=== PATIENT | male | born 1995 | race Caucasian/White ===

== ENCOUNTER 2016-10-12 16:32 | Emergency (ER) | payer OTHER, MEDICAID ==
[2016-10-12] MEDS ORDERED: IBUPROFEN 800 MG TABLET PO ONE (17:01)
[2016-10-12] MEDS ORDERED: CYCLOBENZAPRINE HCL 10 MG TABLET PO ONE (17:01)
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
[2016-10-12 18:26] VITALS: BP 118/73
== END 2016-10-12 18:40 | disposition home or self-care (01) ==
LOC: ER 16:32
DX: T14.90 Injury, unspecified (principal); M54.5 Low back pain; V43.62XA Car passenger injured in collision with other type car in traffic accident, initial encounter; F84.0 Autistic disorder; I10 Essential (primary) hypertension
CPT/HCPCS: 99283

== ENCOUNTER → 2016-10-12 | Outpatient (CLI) | payer MEDICARE, MEDICAID ==
[2016-10-12 12:24] LABS: ABSOLUTE EOSINOPHILS # (AUTO) 0.1 10^3/uL (0.0-0.6); ABSOLUTE LYMPHOCYTES (AUTO) 2.6 10^3/uL (0.5-4.7); ABSOLUTE MONOCYTES (AUTO) 0.6 10^3/uL (0.1-1.4); ABSOLUTE NEUT (AUTO) 2.6 10^3/uL (1.7-8.2); BASOPHILS % (AUTO) 0.5 % (0-2); EOSINOPHILS % (AUTO) 1.4 % (0-6); HEMATOCRIT 36.5 % (37.9-51.0); HEMOGLOBIN 12.4 g/dL (13.5-17.0); HGB HCT DIFFERENCE 0.7; LYMPHOCYTES % (AUTO) 44.5 % (13-45); MEAN CORPUSCULAR HEMOGLOBIN 31.8 pg (27.0-33.4); MEAN CORPUSCULAR HGB CONC 33.8 g/dL (32.0-36.0); MEAN CORPUSCULAR VOLUME 94 fl (80-97); MONOCYTES % (AUTO) 9.5 % (3-13); RED BLOOD COUNT 3.88 10^6/uL (4.35-5.55); RED CELL DISTRIBUTION WIDTH 12.6 % (11.5-14.0); SEGMENTED NEUTROPHILS % (AUTO) 44.1 % (42-78); WHITE BLOOD COUNT 5.9 10^3/uL (4.0-10.5)
[2016-10-12 12:50] LABS: ALANINE AMINOTRANSFERASE 19 U/L (21-72); ALBUMIN 3.9 g/dL (3.5-5.0); ALKALINE PHOSPHATASE 88 U/L (38-126); ANION GAP 8 (5-19); ASPARTATE AMINO TRANSFERASE 18 U/L (17-59); BILIRUBIN,DIRECT 0.4 mg/dL (0.0-0.4); BILIRUBIN,TOTAL 0.5 mg/dL (0.2-1.3); BLOOD UREA NITROGEN 12 mg/dL (7-20); CALCIUM 9.8 mg/dL (8.4-10.2); CARBON DIOXIDE 28 mmol/L (22-30); CHLORIDE 107 mmol/L (98-107); CHOLESTEROL 200.88 mg/dL (0-200); CREATININE RESULT 0.82 mg/dL (0.52-1.25); Direct HDL 49 mg/dL (>40); GLUCOSE 85 mg/dL (75-110); POTASSIUM 5.2 mmol/L (3.6-5.0); SODIUM 142.7 mmol/L (137-145); TOTAL PROTEIN 7.2 g/dL (6.3-8.2); TRIGLYCERIDES 97 mg/dL (<150)
[2016-10-12 13:01] LABS: DIRECT LDL 116 mg/dL (<100); VALPROIC ACID 67.6 ug/mL (50.0-120.0)
== END ==
LOC: OD 11:15
PROVIDERS: ATTEND Nurse Practitioner Psychiatric/Mental Health
DX: F34.81 Disruptive mood dysregulation disorder (principal); Z79.899 Other long term (current) drug therapy
CPT/HCPCS: 36415; 80053; 80061; 80164; 83036; 85025

== ENCOUNTER 2017-08-31 16:18 | Emergency (ER) | payer MEDICARE, MEDICAID ==
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
[2017-08-31] MEDS ORDERED: OLANZAPINE 5 MG TABLET PO ONE (17:06)
[2017-08-31] MEDS ORDERED: DIPHENHYDRAMINE HCL 50 MG CAPSULE PO ONE (17:06)
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
[2017-08-31 18:02] LABS: ABSOLUTE EOSINOPHILS # (AUTO) 0.1 10^3/uL (0.0-0.6); ABSOLUTE LYMPHOCYTES (AUTO) 2.8 10^3/uL (0.5-4.7); ABSOLUTE MONOCYTES (AUTO) 0.9 10^3/uL (0.1-1.4); ABSOLUTE NEUT (AUTO) 5.3 10^3/uL (1.7-8.2); BASOPHILS % (AUTO) 0.2 % (0-2); HEMATOCRIT 39.6 % (37.9-51.0); HEMOGLOBIN 13.3 g/dL (13.5-17.0); LYMPHOCYTES % (AUTO) 30.5 % (13-45); MEAN CORPUSCULAR HEMOGLOBIN 31.1 pg (27.0-33.4); MEAN CORPUSCULAR HGB CONC 33.6 g/dL (32.0-36.0); MEAN CORPUSCULAR VOLUME 93 fl (80-97); MONOCYTES % (AUTO) 10.1 % (3-13); PLATELET COUNT 247 10^3/uL (150-450); RED BLOOD COUNT 4.27 10^6/uL (4.35-5.55); RED CELL DISTRIBUTION WIDTH 13.1 % (11.5-14.0); SEGMENTED NEUTROPHILS % (AUTO) 58.2 % (42-78); TOTAL CELLS COUNTED % (AUTO) 100 %; WHITE BLOOD COUNT 9.1 10^3/uL (4.0-10.5)
[2017-08-31 18:05] LABS: APPEARANCE,URINE CLEAR; BILIRUBIN,URINE NEGATIVE (NEGATIVE); COLOR,URINE STRAW; GLUCOSE, URINE NEGATIVE (NEGATIVE); KETONES,URINE NEGATIVE (NEGATIVE); LEUKOCYTE ESTERASE,URINE NEGATIVE (NEGATIVE); NITRITE,URINE NEGATIVE (NEGATIVE); PROTEIN,URINE NEGATIVE (NEGATIVE); URINE SPECIFIC GRAVITY 1.009; UROBILINOGEN,URINE NEGATIVE mg/dL (<2.0)
[2017-08-31 18:19] LABS: ACETAMINOPHEN < 10 ug/mL (10-30); ALANINE AMINOTRANSFERASE 28 U/L (21-72); ALBUMIN 4.4 g/dL (3.5-5.0); ALCOHOL < 10 mg/dL (NONE DETECTED); ALKALINE PHOSPHATASE 99 U/L (38-126); ANION GAP 11 (5-19); ASPARTATE AMINO TRANSFERASE 24 U/L (17-59); BILIRUBIN,DIRECT 0.2 mg/dL (0.0-0.4); BILIRUBIN,TOTAL 0.2 mg/dL (0.2-1.3); BLOOD UREA NITROGEN 20 mg/dL (7-20); CALCIUM 9.8 mg/dL (8.4-10.2); CARBON DIOXIDE 27 mmol/L (22-30); CHLORIDE 106 mmol/L (98-107); GLUCOSE 84 mg/dL (75-110); POTASSIUM 4.5 mmol/L (3.6-5.0); SALICYLATE 2.6 mg/dL (2.0-20.0); SODIUM 143.6 mmol/L (137-145); TOTAL PROTEIN 7.7 g/dL (6.3-8.2); URINE AMPHETAMINES SCREEN NEGATIVE; URINE BARBITURATES SCREEN NEGATIVE; URINE BENZODIAZEPINES SCREEN NEGATIVE; URINE COCAINE SCREEN NEGATIVE; URINE MARIJUANA (THC) SCREEN NEGATIVE; URINE METHADONE SCREEN NEGATIVE; URINE PHENCYCLIDINE SCREEN NEGATIVE
[2017-08-31] MEDS ORDERED: DIPHENHYDRAMINE HCL 50 MG/ML VIAL IM ONE (19:42)
[2017-08-31] MEDS ORDERED: HALOPERIDOL LACTATE INJ 5 MG/1 ML VIAL IM ONE (19:42)
[2017-08-31] MEDS ORDERED: HALOPERIDOL LACTATE INJ 5 MG/1 ML VIAL ONE (19:42)
[2017-08-31] MEDS ORDERED: DIPHENHYDRAMINE HCL 50 MG/ML VIAL ONE (19:44)
[2017-08-31] MEDS ORDERED: ACETAMINOPHEN 325 MG TABLET PO ONE (20:20)
[2017-09-01] MEDS ORDERED: ACETAMINOPHEN 325 MG TABLET ONE (05:51)
--- NOTE | 2017-09-01 07:56 | EKG REPORT ---
SEVERITY:- OTHERWISE NORMAL ECG - SINUS TACHYCARDIA : Confirmed by: Oleg Jackson MD 01-Sep-2017 07:55:27
--- NOTE | 2017-09-01 09:34 | ER Document Report ---
Doctor's Note Notes: 09/01/17 09:33 Rounds: Chart reviewed and patient interviewed. Patient is happy and smiling and waving to say goodbye. Patient has a history of ADHD, bipolar disorder, autism, and seizures. Vital signs have all been essentially normal. Lab studies were all essentially normal. Patient appears to be medically stable for transfer or discharge. He has an appointment to be seen by his mental health provider as an outpatient at 11 AM this morning. Mental health has approved is being discharged to follow-up with his primary provider. Krys Velasquez MD
[2017-09-01 09:48] VITALS: BP 133/84
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
== END 2017-09-01 09:50 | disposition home or self-care (01) ==
LOC: ER 16:18
DX: F84.0 Autistic disorder (principal); F90.9 Attention-deficit hyperactivity disorder, unspecified type; F31.9 Bipolar disorder, unspecified; R45.6 Violent behavior; I10 Essential (primary) hypertension; Z88.8 Allergy status to other drugs, medicaments and biological substances; Z79.899 Other long term (current) drug therapy; R00.0 Tachycardia, unspecified
CPT/HCPCS: 93005; 99285; 96372; 36415; 80307 ×4; 84443; 85025; 80053; 81001; 93010; A9270 ×3; J1200; J1630

== ENCOUNTER → 2017-09-06 | Outpatient (CLI) | payer MEDICARE, MEDICAID ==
--- NOTE | 2017-09-06 15:59 | RADIOLOGY REPORT (SQ) ---
EXAM DESCRIPTION: MRI RT LOWER JOINT COMBO COMPLETED DATE/TIME: 09/06/2017 1:08 pm REASON FOR STUDY: R ANKLE MASS M25.879 OTHER SPECIFIED JOINT DISORDERS, UNSPECIFIED ANKLE A COMPARISON: Right foot films 05/17/2012 TECHNIQUE: Multiplanar fat and fluid sensitive sequences precontrast including T1, T2 fat saturated or STIR. Post contrast T1 fat saturated sequences after IV gadolinium administration. CONTRAST TYPE AND DOSE: 15 mL Prohance. RENAL FUNCTION: GFR > 60. LIMITATIONS: None. FINDINGS: Patient has a palpable abnormality along the ventral aspect of the ankle/distal tibial reg ion. The palpable abnormality was marked on the skin surface with a vitamin E capsule. Deep to the vitamin-E capsule, a well-circumscribed fluid filled thin-walled subcutaneous cyst is pre sent, superficial to the tibialis anterior, extensor hallucis longus and extensor digitorum tendon. No contrast enhancement. There is a fluid-debris level inside the cyst evident on axial T2 image 9. This subcutaneous cyst measures 13 x 6 mm in size and is best shown on axial image 9, and sagittal im age 9. This may represent a sebaceous cyst or old hematoma. Synovial cyst related to the tendon she aths is unlikely, this is superficial to the tibialis anterior tendon sheath. Remainder of the ankle imaging demonstrates mild increased marrow signal along the dorsum of the calc aneus on sagittal STIR image 9. This could be a bone contusion from hyperextension of the ankle, or a stress reaction. No radiographically occult fractures. Achilles tendon, plantar fascia, posterior tibial and peroneal tendons, flexor hallucis tendon are all normal. No ankle joint effusion. IMPRESSION: 13 x 6 mm complex cyst in the subcutaneous fat, distal pretibial region. This is discre te from adjacent tendon sheaths and may represent a sebaceous cyst. Old hematoma is possible. Synov ial cyst related to the tibialis anterior tendon is considered much less likely. Incidental finding of a small bone contusion along the dorsal surface of the calcaneus, possibly due to hyperextension injury TECHNICAL DOCUMENTATION: JOB ID: [id number] [employer]- All Rights Reserved Reading location - IP/workstation name: [email or web address]
== END ==
LOC: RAD 11:45
PROVIDERS: ATTEND Orthopaedic Surgery
DX: M71.371 Other bursal cyst, right ankle and foot (principal)
CPT/HCPCS: 82565; 73723; A9576

== ENCOUNTER 2017-10-20 | Emergency (ER) | payer MEDICARE, OTHER | END 2017-10-20 21:05 | disposition left against medical advice (07) ==

== ENCOUNTER 2017-11-02 19:26 | Emergency (ER) | payer MEDICARE, MEDICAID ==
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
[2017-11-02 20:46] LABS: ABSOLUTE EOSINOPHILS # (AUTO) 0.1 10^3/uL (0.0-0.6); ABSOLUTE LYMPHOCYTES (AUTO) 3.9 10^3/uL (0.5-4.7); ABSOLUTE NEUT (AUTO) 4.5 10^3/uL (1.7-8.2); BASOPHILS % (AUTO) 0.2 % (0-2); EOSINOPHILS % (AUTO) 1.5 % (0-6); HEMATOCRIT 38.2 % (37.9-51.0); HEMOGLOBIN 12.9 g/dL (13.5-17.0); LYMPHOCYTES % (AUTO) 40.9 % (13-45); MEAN CORPUSCULAR HEMOGLOBIN 30.7 pg (27.0-33.4); MEAN CORPUSCULAR HGB CONC 33.7 g/dL (32.0-36.0); MEAN CORPUSCULAR VOLUME 91 fl (80-97); MONOCYTES % (AUTO) 10.4 % (3-13); PLATELET COUNT 253 10^3/uL (150-450); RED BLOOD COUNT 4.19 10^6/uL (4.35-5.55); RED CELL DISTRIBUTION WIDTH 12.5 % (11.5-14.0); TOTAL CELLS COUNTED % (AUTO) 100 %; WHITE BLOOD COUNT 9.5 10^3/uL (4.0-10.5)
[2017-11-02 21:12] LABS: ALANINE AMINOTRANSFERASE 24 U/L (21-72); ALBUMIN 3.9 g/dL (3.5-5.0); ALKALINE PHOSPHATASE 99 U/L (38-126); ANION GAP 15 (5-19); ASPARTATE AMINO TRANSFERASE 20 U/L (17-59); BILIRUBIN,DIRECT 0.1 mg/dL (0.0-0.4); BILIRUBIN,TOTAL 0.1 mg/dL (0.2-1.3); BLOOD UREA NITROGEN 16 mg/dL (7-20); CALCIUM 9.3 mg/dL (8.4-10.2); CARBON DIOXIDE 24 mmol/L (22-30); CHLORIDE 105 mmol/L (98-107); GLUCOSE 88 mg/dL (75-110); POTASSIUM 4.2 mmol/L (3.6-5.0); SALICYLATE 1.9 mg/dL (2.0-20.0); SODIUM 144.2 mmol/L (137-145)
[2017-11-02 21:20] LABS: ACETAMINOPHEN < 10 ug/mL (10-30); ALCOHOL < 10 mg/dL (NONE DETECTED)
[2017-11-02 22:32] VITALS: BP 128/78
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
--- NOTE | 2017-11-02 23:35 | EKG REPORT ---
SEVERITY:- NORMAL ECG - SINUS RHYTHM : Confirmed by: Dank Weir 02-Nov-2017 23:35:33
== END 2017-11-02 22:48 | disposition home or self-care (01) ==
LOC: ER 19:26
DX: G40.909 Epilepsy, unspecified, not intractable, without status epilepticus (principal); Z79.899 Other long term (current) drug therapy; F84.0 Autistic disorder; F31.9 Bipolar disorder, unspecified; R45.6 Violent behavior; Z88.8 Allergy status to other drugs, medicaments and biological substances; I10 Essential (primary) hypertension
CPT/HCPCS: 36415; 80053; 80164; 80307; 82140; 83690; 85025; 93005; 93010; 99285

== ENCOUNTER 2017-11-10 19:59 | Emergency (ER) | payer MEDICARE, MEDICAID ==
[2017-11-10 20:51] VITALS: BP 99/84
[2017-11-10 20:57] LABS: ABSOLUTE EOSINOPHILS # (AUTO) 0.1 10^3/uL (0.0-0.6); ABSOLUTE LYMPHOCYTES (AUTO) 3.1 10^3/uL (0.5-4.7); ABSOLUTE MONOCYTES (AUTO) 0.9 10^3/uL (0.1-1.4); ABSOLUTE NEUT (AUTO) 3.7 10^3/uL (1.7-8.2); BASOPHILS % (AUTO) 0.5 % (0-2); EOSINOPHILS % (AUTO) 1.3 % (0-6); HEMATOCRIT 38.1 % (37.9-51.0); HEMOGLOBIN 13.1 g/dL (13.5-17.0); MEAN CORPUSCULAR HEMOGLOBIN 31.1 pg (27.0-33.4); MEAN CORPUSCULAR HGB CONC 34.4 g/dL (32.0-36.0); MEAN CORPUSCULAR VOLUME 91 fl (80-97); MONOCYTES % (AUTO) 11.8 % (3-13); PLATELET COUNT 243 10^3/uL (150-450); RED BLOOD COUNT 4.21 10^6/uL (4.35-5.55); RED CELL DISTRIBUTION WIDTH 12.4 % (11.5-14.0); SEGMENTED NEUTROPHILS % (AUTO) 47.4 % (42-78); TOTAL CELLS COUNTED % (AUTO) 100 %; WHITE BLOOD COUNT 7.9 10^3/uL (4.0-10.5)
[2017-11-10 21:00] LABS: APPEARANCE,URINE CLEAR; BILIRUBIN,URINE NEGATIVE (NEGATIVE); COLOR,URINE YELLOW; GLUCOSE, URINE NEGATIVE (NEGATIVE); KETONES,URINE NEGATIVE (NEGATIVE); LEUKOCYTE ESTERASE,URINE NEGATIVE (NEGATIVE); NITRITE,URINE NEGATIVE (NEGATIVE); PROTEIN,URINE NEGATIVE (NEGATIVE); URINE SPECIFIC GRAVITY 1.018
[2017-11-10 21:07] LABS: ALANINE AMINOTRANSFERASE 16 U/L (21-72); ALBUMIN 4.1 g/dL (3.5-5.0); ALKALINE PHOSPHATASE 91 U/L (38-126); ANION GAP 11 (5-19); ASPARTATE AMINO TRANSFERASE 21 U/L (17-59); BILIRUBIN,DIRECT 0.2 mg/dL (0.0-0.4); BILIRUBIN,TOTAL 0.2 mg/dL (0.2-1.3); BLOOD UREA NITROGEN 14 mg/dL (7-20); CALCIUM 9.4 mg/dL (8.4-10.2); CARBON DIOXIDE 24 mmol/L (22-30); CHLORIDE 107 mmol/L (98-107); GLUCOSE 91 mg/dL (75-110); POTASSIUM 4.4 mmol/L (3.6-5.0); SODIUM 142.2 mmol/L (137-145); TOTAL PROTEIN 7.3 g/dL (6.3-8.2)
[2017-11-10 21:09] LABS: ACETAMINOPHEN < 10 ug/mL (10-30); ALCOHOL < 10 mg/dL (NONE DETECTED); SALICYLATE < 1.0 mg/dL (2.0-20.0)
[2017-11-10 21:14] LABS: URINE AMPHETAMINES SCREEN NEGATIVE; URINE BARBITURATES SCREEN NEGATIVE; URINE BENZODIAZEPINES SCREEN NEGATIVE; URINE COCAINE SCREEN NEGATIVE; URINE MARIJUANA (THC) SCREEN NEGATIVE; URINE METHADONE SCREEN NEGATIVE; URINE PHENCYCLIDINE SCREEN NEGATIVE
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
== END 2017-11-10 22:31 | disposition other institution (70) ==
LOC: ER 19:59
DX: F91.9 Conduct disorder, unspecified (principal); I10 Essential (primary) hypertension
CPT/HCPCS: 36415; 80053; 80307; 81001; 85025; 99284

== ENCOUNTER 2017-12-11 21:05 | Emergency (ER) | payer MEDICARE, MEDICAID ==
[2017-12-11] MEDS ORDERED: FLUCONAZOLE 100 MG TABLET PO ONE (21:30)
[2017-12-11] MEDS ORDERED: NYSTATIN/TRIAMCIN CREAM 15 GM TP ONE (21:31)
--- NOTE | 2017-12-11 21:31 | ER Document Report ---
ED General - General Chief Complaint: Rash Stated Complaint: TESTICULAR PAIN Time Seen by Provider: 12/11/17 21:17 Mode of Arrival: Ambulatory Information source: Patient, Relative Notes: 22-year-old male with history of autism, bipolar, schizophrenia presents with complaint of inguinal and testicular itching that started 1 day prior to arrival. Grandparents are at the bedside and states that the patient has been working outdoors in the heat and has had excessive sweating. he denies testicular pain, dysuria. TRAVEL OUTSIDE OF THE [place] IN LAST 30 DAYS: No - HPI Onset: Yesterday Onset/Duration: Gradual, Persistent Quality of pain: No pain Associated symptoms: None Exacerbated by: Denies Relieved by: Denies Similar symptoms previously: No Recently seen / treated by doctor: No - Related Data Allergies/Adverse Reactions: lorazepam [From Ativan] Allergy (Severe, Verified 08/31/17 16:21) risperidone [From Risperdal] Allergy (Verified 08/31/17 16:21) Past Medical History - General Information source: Patient, Relative, [facility] Records - Social History Smoking Status: Never Smoker Frequency of alcohol use: None Drug Abuse: None Lives with: Family Family History: Reviewed & Not Pertinent - Past Medical History Cardiac Medical History: Reports: Hx Hypertension Neurological Medical History: Reports: Hx Seizures Renal/ Medical History: Denies: Hx Peritoneal Dialysis Psychiatric Medical History: Reports: Hx Attention Deficit Hyperactivity Disorder, Hx Bipolar Disorder - Immunizations Immunizations up to date: Yes Hx Diphtheria, Pertussis, Tetanus Vaccination: Yes Review of Systems - Review of Systems Notes: REVIEW OF SYSTEMS: CONSTITUTIONAL : Denies fever, chills, or sweats. Denies recent illness. Denies weight loss, recent hospitalizations. EENT: Denies visual changes, eye pain. Denies nasal or sinus congestion or discharge. Denies sore throat, oral lesions, difficulty swallowing. CARDIOVASCULAR: Denies chest pain. Denies palpitations. Denies lower extremity edema. RESPIRATORY: Denies cough, cold, or chest congestion. Denies shortness of breath, wheezing. GASTROINTESTINAL: Denies abdominal pain or distention. Denies nausea, vomiting , or diarrhea. Denies blood in vomitus, stools, or per rectum. Denies black, tarry stools. Denies constipation. GENITOURINARY: Denies difficulty urinating, painful urination, frequency, blood in urine, or vaginal discharge. MUSCULOSKELETAL: Denies back or neck pain or stiffness. Denies joint pain or swelling. SKIN: HEMATOLOGIC : Denies easy bruising or bleeding. LYMPHATIC: Denies swollen glands. NEUROLOGICAL: Denies confusion or altered mental status. Denies passing out or loss of consciousness. Denies dizziness or lightheadedness. Denies headache. Denies weakness or paralysis. Denies problems difficulty with ambulation, slurred speech. Denies sensory loss, numbness, or tingling. Denies seizures. PSYCHIATRIC: Denies anxiety or stress. Denies depression, suicidal ideation, or homicidal ideation. Denies visual or auditory hallucinations. Physical Exam - Vital signs Vitals: Temp Pulse Resp BP Pulse Ox 97.9 F 114 H 20 127/79 H 100 12/11/17 21:11 12/11/17 21:11 12/11/17 21:11 12/11/17 21:11 12/11/17 21:11 Interpretation: Tachycardic - Notes Notes: PHYSICAL EXAMINATION: GENERAL: Well-appearing, well-nourished and in no acute distress. HEAD: Atraumatic, normocephalic. EYES: Pupils equal round and reactive to light, extraocular movements intact, sclera anicteric, conjunctiva are normal. ENT: Nares patent, oropharynx clear without exudates. Moist mucous membranes. NECK: Normal range of motion, supple without lymphadenopathy LUNGS: Breath sounds clear to auscultation bilaterally and equal. No wheezes rales or rhonchi. HEART: Regular rate and rhythm without murmurs ABDOMEN: Soft, nontender, nondistended abdomen. No guarding, no rebound. No masses appreciated. ; testicles nontender, erythema of the inguinal folds, testicle consistent with fungal rash. Musculoskeletal: Normal range of motion, no pitting or edema. No cyanosis. NEUROLOGICAL: Cranial nerves grossly intact. Normal speech, normal gait. Normal sensory, motor exams PSYCH: Normal mood, normal affect. SKIN: Warm, Dry, normal turgor, no rashes or lesions noted. Course - Re-evaluation Re-evalutation: 12/12/17 00:17 22-year-old male presents with complaint of inguinal and testicular itching, burning that started 1 day prior to arrival. Vital signs reviewed upon arrival. Exam consistent with fungal rash. Patient received Diflucan, nystatin during his ED course. Patient discharged home with prescription for nystatin. Patient provided the opportunity to ask questions, and express concerns. Discharge instructions discussed. Patient is agreeable with discharge home. Return indications explained and discussed with the patient who displays understanding. Patient encouraged to return to the emergency department immediately with any concerns. - Vital Signs Vital signs: Temp Pulse Resp BP Pulse Ox 98.1 F 89 17 127/69 H 98 12/11/17 21:56 12/11/17 21:56 12/11/17 21:56 12/11/17 21:56 12/11/17 21:56 Discharge - Discharge Clinical Impression: Jock itch, Fungal rash of trunk Condition: Good Disposition: HOME, SELF-CARE Instructions: Diaper Rash ([facility]) Additional Instructions: your exam is consistent with fungal rash. Follow up with your physician tomorrow for further care or return to the ED IMMEDIATELY if symptoms worsen or new concerns occur. If you cannot afford to follow up with your primary care physician a list of low cost clinics have been provided at the end of your discharge papers as well. Prescriptions: Nystatin/Triamcin [Nystatin-Triamcinolone Ointm] 60 gm TP TID #1 oint...g. Forms: Elevated Blood Pressure
[2017-12-11 21:56] VITALS: BP 127/69
== END 2017-12-11 21:56 | disposition home or self-care (01) ==
LOC: ER 21:05
DX: B35.6 Tinea cruris (principal)
CPT/HCPCS: 99282; J3490; A9270

== ENCOUNTER 2018-04-20 20:01 | Emergency (ER) | payer MEDICARE, MEDICAID ==
[~2018-04-20 20:01] MED LIST: ROCURONIUM BROMIDE INJ 50 MG/5 ML VIAL IV ONE
[2018-04-20] MEDS ORDERED: NORMAL SALINE 1000 ML 1,000 ML IV ONE ×2 (20:37→20:38)
[2018-04-20 20:51] LABS: HEMATOCRIT 39.8 % (37.9-51.0); HEMOGLOBIN 13.5 g/dL (13.5-17.0); MEAN CORPUSCULAR VOLUME 97 fl (80-97); RED BLOOD COUNT 4.09 10^6/uL (4.35-5.55); WHITE BLOOD COUNT 12.2 10^3/uL (4.0-10.5)
[2018-04-20 21:21] LABS: PLATELET COUNT 47 10^3/uL (150-450)
[2018-04-20 21:25] LABS: ABSOLUTE LYMPHOCYTES# (MANUAL) 1.2 10^3/uL (0.5-4.7); ABSOLUTE MONOCYTES # (MANUAL) 2.2 10^3/uL (0.1-1.4); ABSOLUTE NEUTROPHILS# (MANUAL) 8.8 10^3/uL (1.7-8.2); BASOPHILS % (MANUAL) 0 % (0-2); EOSINOPHILS % (MANUAL) 0 % (0-6); LYMPHOCYTES % (MANUAL) 10 % (13-45); MONOCYTES % (MANUAL) 18 % (3-13); SEGMENTED NEUTROPHILS % (MAN) 72 % (42-78); TOTAL CELLS COUNTED 100
[2018-04-20 21:28] LABS: HYPOCHROMASIA SLIGHT; POLYCHROMASIA SLIGHT
[2018-04-20 21:28] LABS: ALANINE AMINOTRANSFERASE 18 U/L (21-72); ALBUMIN 3.1 g/dL (3.5-5.0); ALKALINE PHOSPHATASE 63 U/L (38-126); ANION GAP 10 (5-19); ASPARTATE AMINO TRANSFERASE 26 U/L (17-59); BILIRUBIN,DIRECT 0.5 mg/dL (0.0-0.4); BILIRUBIN,TOTAL 0.7 mg/dL (0.2-1.3); BLOOD UREA NITROGEN 21 mg/dL (7-20); CALCIUM 8.8 mg/dL (8.4-10.2); CARBON DIOXIDE 29 mmol/L (22-30); CHLORIDE 107 mmol/L (98-107); GLUCOSE 113 mg/dL (75-110); POTASSIUM 4.6 mmol/L (3.6-5.0); SODIUM 145.9 mmol/L (137-145)
[2018-04-20 21:29] LABS: ANISOCYTOSIS SLIGHT; PLATELET COMMENT DECREASED; POIKILOCYTOSIS SLIGHT; TEAR DROP CELLS SLIGHT; TOXIC VACUOLATION PRESENT
--- NOTE | 2018-04-20 21:36 | ER Document Report ---
ED General - General Chief Complaint: Decreased LOC Stated Complaint: POSSIBLE DEHYDRATION Time Seen by Provider: 04/20/18 20:16 Notes: Patient is a old male with autism and seizure disorder that presents to the emergency department for chief complaint of decreased mental status, increased somnolence. Mother states that over the last few weeks, patient has been more drowsy, and having frequent falls, and what she describes as "dropping spells" where she thinks the patient may be having a type of seizure, she reports he is on Depakote, they recently increased his dose from 1000 mg to 1500 mg. He is also had some changes in his psychiatric medications, he was on Geodon, until recently switched to Zyprexa, the mother states that he has been drowsy, he has been walking around but then will lose his balance, and then fall over. And then he will have spastic episodes as well. She states she is usually more independent, and has been more active in the past and it got to the point to today where he was so sleepy that she decided to call EMS and bring him to the emergency department. Patient is unable to provide any significant history given his severe autism. Past Medical History: Bipolar disorder, severe autism, seizure disorder Past Surgical History: Denies major surgical history Social History: No alcohol or tobacco use, lives at home with family Family History: Reviewed and noncontributory for presenting illness Allergies: Reviewed, see documented allergy list. REVIEW OF SYSTEMS: Complete review of systems is not obtainable secondary to the patient's altered mental state PHYSICAL EXAMINATION: Vital signs reviewed, nursing noted reviewed. GENERAL: Somnolent, speaks in intermittent words, which is apparently near his baseline, but not somnolent HEAD: Left eyebrow abrasion, no active bleeding, normocephalic. EYES: Eyes appear normal, extraocular movements intact, sclera anicteric, conjunctiva are normal. PERRLA ENT: nares patent, oropharynx clear without exudates. Lips are cracked, consistent with mild to moderate dehydration NECK: Normal range of motion, supple without lymphadenopathy LUNGS: Scattered rhonchi in all lung arenas, no acute respiratory distress HEART: Regular rate and rhythm without murmurs ABDOMEN: Soft, nontender, normoactive bowel sounds. No rebound, guarding, or rigidity. No masses appreciated. EXTREMITIES: Nontender, good range of motion, no pitting or edema. NEUROLOGICAL: No focal neurological deficits. Moves all extremities spontaneously Motor and sensory grossly intact on exam. PSYCH: Somnolent, flat affect SKIN: Warm, Dry, normal turgor, no rashes or lesions noted on exposed skin TRAVEL OUTSIDE OF THE [place] IN LAST 30 DAYS: No - Related Data Allergies/Adverse Reactions: lorazepam [From Ativan] Allergy (Severe, Verified 04/20/18 20:34) risperidone [From Risperdal] Allergy (Verified 04/20/18 20:34) Past Medical History - Social History Smoking Status: Never Smoker Family History: Reviewed & Not Pertinent Patient has suicidal ideation: No Patient has homicidal ideation: No - Past Medical History Cardiac Medical History: Reports: Hx Hypertension Neurological Medical History: Reports: Hx Seizures Renal/ Medical History: Denies: Hx Peritoneal Dialysis Psychiatric Medical History: Reports: Hx Attention Deficit Hyperactivity Disorder, Hx Bipolar Disorder - Immunizations Immunizations up to date: Yes Hx Diphtheria, Pertussis, Tetanus Vaccination: Yes Physical Exam - Vital signs Vitals: Resp Pulse Ox 17 95 04/20/18 20:08 04/20/18 20:08 Course - Re-evaluation Re-evalutation: Patient seen and examined vital signs reviewed. Laboratory data and imaging were ordered as appropriate for the patient's presenting symptoms and complaint, with consideration of any critical or life threatening conditions that may be associated with their obtained history and exam as noted above. Patient was treated with a total of 3 L of IV fluid, 2 of normal saline, 1 of lactated Ringer's Patient was moving all limbs, and seemingly alert, but somnolent on initial exam , when we went to obtain a urine sample, with urine catheterization, the patient barely moved according to nursing, and the patient's mother, I went to reassess the patient, and he was nearly unresponsive, would not open eyes to verbal or noxious stimuli, he would withdrawal to noxious stimuli locally, I assessed his pupils, and in a brightly lit room, they were significantly dilated , still reactive to light, but had disconjugate gaze, concerning for 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 I discussed with the patient's mother, that we need to start him on IV antiepileptic medication, and with Keppra 1000 mg IV was loaded, and for the patient's airway protection, mother was agreeable to this plan of care, he was intubated using RSI as noted in procedure note. Results were reviewed when available and demonstrated an elevated Depakote level of 132, I did discuss this with poison control, they recommended repeating this level, and looking in correlation with ammonia, which is pending at that time, the ammonia level did come back normal at 10, which is less concerning for acute Depakote toxicity, and therefore l-carnitine is not indicated. The rest of his blood work was essentially unremarkable with the exception of mild leukocytosis, mild hypernatremia, which is unlikely to be contributing to the patient's overall current condition. The patient was re-evaluated and was stable on the ventilator, and sedated well on Versed infusion. 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 This was discussed with the patients mother that it is in the best interest for their care to be transferred, the risks and benefits of transfer were discussed, including but not limited to clinical deterioration during transport, respiratory distress, and potential for traumatic injuries. Patients mother agreed with this plan of care. Patient was dissected by Dr. Rutledge *Note is created using voice recognition software and may contain spelling, syntax or grammatical errors. Head CT 04/20/18 20:38 IMPRESSION: Significantly limited due to extensive motion. As visualized no CT evidence for acute intracranial abnormality. Polyps of the left maxillary sinus. TECHNICAL DOCUMENTATION: Quality ID # 436: Final reports with documentation of one or more dose reduction techniques (e.g., Automated exposure control, adjustment of the mA and/or kV according to patient size, use of iterative reconstruction technique) 2010 [employer]- All Rights Reserved Chest X-Ray 04/21/18 01:23 IMPRESSION: 1. Endotracheal tube in appropriate radiographic position. 2. NG tube with tip in the stomach however the side-port is above the level of the gastroesophageal junction. Recommend advancing 5-10 cm. 3. Patchy retrocardiac airspace opacities may represent pneumonia. Laboratory 04/20/18 04/20/18 04/20/18 20:11 20:20 20:55 WBC 12.2 H RBC 4.09 L Hgb 13.5 Hct 39.8 MCV 97 MCH 33.0 MCHC 34.0 RDW 15.0 H Plt Count 47 L Total Counted 100 Seg Neutrophils % Not Reportable Seg Neuts % (Manual) 72 Lymphocytes % Not Reportable Lymphocytes % (Manual) 10 L Monocytes % Not Reportable Monocytes % (Manual) 18 H Eosinophils % Not Reportable Eosinophils % (Manual) 0 Basophils % Not Reportable Basophils % (Manual) 0 Absolute Neutrophils Not Reportable Abs Neuts (Manual) 8.8 H Absolute Lymphocytes Not Reportable Abs Lymphs (Manual) 1.2 Absolute Monocytes Not Reportable Abs Monocytes (Manual) 2.2 H Absolute Eosinophils Not Reportable Absolute Eos (Manual) 0.0 Absolute Basophils Not Reportable Abs Basophils (Manual) 0.0 Toxic Vacuolation PRESENT Platelet Comment DECREASED Polychromasia SLIGHT Hypochromasia SLIGHT Poikilocytosis SLIGHT Anisocytosis SLIGHT Tear Drop Cells SLIGHT Sodium 145.9 H Potassium 4.6 Chloride 107 Carbon Dioxide 29 Anion Gap 10 BUN 21 H Creatinine 0.76 Est GFR ( Amer) > 60 Est GFR (Non-Af Amer) > 60 Glucose 113 H POC Glucose 122 H Calcium 8.8 Magnesium 1.7 Total Bilirubin 0.7 Direct Bilirubin 0.5 H Neonat Total Bilirubin Not Reportable Neonat Direct Bilirubin Not Reportable Neonat Indirect Bili Not Reportable AST 26 ALT 18 L Alkaline Phosphatase 63 Ammonia Creatine Kinase Total Protein 6.0 L Albumin 3.1 L TSH Urine Color Urine Appearance Urine pH Ur Specific [place] Urine Protein Urine Glucose (UA) Urine Ketones Urine Blood Urine Nitrite Urine Bilirubin Urine Urobilinogen Ur Leukocyte Esterase Urine WBC (Auto) Urine RBC (Auto) U Hyaline Cast (Auto) Amorphous Sediment Auto Urine Mucus (Auto) Urine Ascorbic Acid Valproic Acid 133.2 H* 04/20/18 04/20/18 04/20/18 20:55 20:55 23:40 WBC RBC Hgb Hct MCV MCH MCHC RDW Plt Count Total Counted Seg Neutrophils % Seg Neuts % (Manual) Lymphocytes % Lymphocytes % (Manual) Monocytes % Monocytes % (Manual) Eosinophils % Eosinophils % (Manual) Basophils % Basophils % (Manual) Absolute Neutrophils Abs Neuts (Manual) Absolute Lymphocytes Abs Lymphs (Manual) Absolute Monocytes Abs Monocytes (Manual) Absolute Eosinophils Absolute Eos (Manual) Absolute Basophils Abs Basophils (Manual) Toxic Vacuolation Platelet Comment Polychromasia Hypochromasia Poikilocytosis Anisocytosis Tear Drop Cells Sodium Potassium Chloride Carbon Dioxide Anion Gap BUN Creatinine Est GFR ( Amer) Est GFR (Non-Af Amer) Glucose POC Glucose Calcium Magnesium Total Bilirubin Direct Bilirubin Neonat Total Bilirubin Neonat Direct Bilirubin Neonat Indirect Bili AST ALT Alkaline Phosphatase Ammonia 10.1 Creatine Kinase 46 L Total Protein Albumin TSH 0.52 Urine Color Urine Appearance Urine pH Ur Specific [place] Urine Protein Urine Glucose (UA) Urine Ketones Urine Blood Urine Nitrite Urine Bilirubin Urine Urobilinogen Ur Leukocyte Esterase Urine WBC (Auto) Urine RBC (Auto) U Hyaline Cast (Auto) Amorphous Sediment Auto Urine Mucus (Auto) Urine Ascorbic Acid Valproic Acid 04/21/18 00:20 WBC RBC Hgb Hct MCV MCH MCHC RDW Plt Count Total Counted Seg Neutrophils % Seg Neuts % (Manual) Lymphocytes % Lymphocytes % (Manual) Monocytes % Monocytes % (Manual) Eosinophils % Eosinophils % (Manual) Basophils % Basophils % (Manual) Absolute Neutrophils Abs Neuts (Manual) Absolute Lymphocytes Abs Lymphs (Manual) Absolute Monocytes Abs Monocytes (Manual) Absolute Eosinophils Absolute Eos (Manual) Absolute Basophils Abs Basophils (Manual) Toxic Vacuolation Platelet Comment Polychromasia Hypochromasia Poikilocytosis Anisocytosis Tear Drop Cells Sodium Potassium Chloride Carbon Dioxide Anion Gap BUN Creatinine Est GFR ( Amer) Est GFR (Non-Af Amer) Glucose POC Glucose Calcium Magnesium Total Bilirubin Direct Bilirubin Neonat Total Bilirubin Neonat Direct Bilirubin Neonat Indirect Bili AST ALT Alkaline Phosphatase Ammonia Creatine Kinase Total Protein Albumin TSH Urine Color TERI Urine Appearance CLOUDY Urine pH 6.0 Ur Specific [place] 1.028 Urine Protein 100 H Urine Glucose (UA) NEGATIVE Urine Ketones 20 H Urine Blood NEGATIVE Urine Nitrite NEGATIVE Urine Bilirubin SMALL H Urine Urobilinogen 4.0 H Ur Leukocyte Esterase NEGATIVE Urine WBC (Auto) 1 Urine RBC (Auto) 0 U Hyaline Cast (Auto) 2 Amorphous Sediment Auto TRACE Urine Mucus (Auto) MANY Urine Ascorbic Acid NEGATIVE Valproic Acid - Vital Signs Vital signs: Temp Pulse Resp BP Pulse Ox 98.3 F 16 102/81 100 04/20/18 20:09 04/21/18 02:00 04/21/18 01:46 04/21/18 01:46 - Laboratory Result Diagrams: 04/20/18 20:20 04/20/18 20:55 Laboratory results interpreted by me: 11/14/18 11/14/18 11/14/18 20:11 20:20 20:55 WBC 12.2 H RBC 4.09 L RDW 15.0 H Plt Count 47 L Lymphocytes % (Manual) 10 L Monocytes % (Manual) 18 H Abs Neuts (Manual) 8.8 H Abs Monocytes (Manual) 2.2 H Sodium 145.9 H BUN 21 H Glucose 113 H POC Glucose 122 H Direct Bilirubin 0.5 H ALT 18 L Creatine Kinase Total Protein 6.0 L Albumin 3.1 L Urine Protein Urine Ketones Urine Bilirubin Urine Urobilinogen Valproic Acid 133.2 H* 04/20/18 04/21/18 20:55 00:20 WBC RBC RDW Plt Count Lymphocytes % (Manual) Monocytes % (Manual) Abs Neuts (Manual) Abs Monocytes (Manual) Sodium BUN Glucose POC Glucose Direct Bilirubin ALT Creatine Kinase 46 L Total Protein Albumin Urine Protein 100 H Urine Ketones 20 H Urine Bilirubin SMALL H Urine Urobilinogen 4.0 H Valproic Acid - EKG Interpretation by Me Additional EKG results interpreted by me: EKG demonstrates sinus rhythm with a ventricular rate of 84 bpm, QTC 459 ms, there is nonspecific T wave inversion in lead V2, no ST changes, this is compared with prior EKG from 11/02/2017, where that T wave change is new. Procedures - Intubation Orotracheal Airway evaluation: Normal anatomy Mallampati Classification: Class 1 Medications: Etomidate - 20mg, Other - rocuronium 100mg Intubation method: Orotracheal Blade size: 4 Equipment used: Glidescope ETT size: 8.0 ETT secured at: Teeth ETT secured at (cm): 23 Breath Sounds after Intubation: Equal End tidal CO2 confirmed: Yes FiO2: 40 Respirations: 12 Pressure support: 10 PEEP: 5 Post Intubation Xray: Yes Intubation Complications: No complications Critical Care Note - Critical Care Note Total time excluding time spent on procedures (mins): 45 Comments: Critical care time 45 minutes exclusive from separate billable procedures for a patient requiring complex medical decision making, and high potential for clinical deterioration. In the patient with nonconvulsive status epilepticus, requiring intubation, calls her transport, and multiple visits to the patient's room for reassessment. Time spent obtaining history from patient or surrogate, discussions with consultants, development of treatment plan with patient or surrogate, evaluation of patient's response to treatment, examination of patient , ordering and performing treatments and interventions, ordering and review of laboratory studies, re-evaluation of patient's condition, ordering and review of radiographic studies and review of old charts Discharge - Discharge Clinical Impression: Status epilepticus, Dehydration Valproic acid toxicity Qualifiers: Encounter type: initial encounter Injury intent: undetermined intent Qualified Code(s): T42.6X4A - Poisoning by other antiepileptic and sedative-hypnotic drugs , undetermined, initial encounter Condition: Serious Disposition: [facility]
--- NOTE | 2018-04-20 23:44 | RADIOLOGY REPORT (SQ) ---
EXAM DESCRIPTION: CT HEAD WITHOUT IV CONTRAST COMPLETED DATE/TME: 04/20/2018 20:38 CLINICAL HISTORY: 22 years, Male, head injury COMPARISON: None. TECHNIQUE: 408 Images stored on PACS. All CT scanners at this facility use dose modulation, iterative reconstruction, and/or weight based dosing when appropriate to reduce radiation dose to as low as reasonably achievable (ALARA). [facility]: Dose Right [facility]: CareDose [facility]: Dose Right [facility]: Teradose 4D [facility]: SparCode LIMITATIONS: None. FINDINGS: Motion artifact degrades image quality and significantly limits the exam, making it nearly nondiagnostic.. The globes appear intact. Polyps of the left maxillary sinus. No definitive displaced or depressed skull fracture. No convincing evidence for intra or extra-axial hemorrhage. Pleural-based calcifications are present. CT is limited for evaluation of acute infarct. No convincing evidence for large or territorial acute infarct. No mass or midline shift.. IMPRESSION: Significantly limited due to extensive motion. As visualized no CT evidence for acute intracranial abnormality. Polyps of the left maxillary sinus. TECHNICAL DOCUMENTATION: Quality ID # 436: Final reports with documentation of one or more dose reduction techniques (e.g., Automated exposure control, adjustment of the mA and/or kV according to patient size, use of iterative reconstruction technique) 2010 [employer]- All Rights Reserved
[2018-04-21] MEDS ORDERED: RINGERS SOLUTION,LACTATED 1,000 ML IV ONE (00:12)
[2018-04-21 00:41] LABS: AMORPHOUS SEDIMENT,URINE TRACE /HPF; APPEARANCE,URINE CLOUDY; BILIRUBIN,URINE SMALL (NEGATIVE); COLOR,URINE AMBER; GLUCOSE, URINE NEGATIVE (NEGATIVE); KETONES,URINE 20 mg/dL (NEGATIVE); LEUKOCYTE ESTERASE,URINE NEGATIVE (NEGATIVE); NITRITE,URINE NEGATIVE (NEGATIVE); PROTEIN,URINE 100 mg/dL (NEGATIVE); URINE SPECIFIC GRAVITY 1.028
[2018-04-21] MEDS ORDERED: LEVETIRACETAM 1000 MG/NACL-ISO 1,000 MG/100 ML RTUPB IV ONE ×2 (01:13)
[2018-04-21] MEDS ORDERED: ETOMIDATE INJ/PF 20 MG/10 ML SDV IV ONE ×2 (01:14→01:15)
[2018-04-21] MEDS ORDERED: ROCURONIUM BROMIDE INJ 50 MG/5 ML VIAL IV ONE (01:15)
[2018-04-21] MEDS ORDERED: MIDAZOLAM HCL 50 MG/100 ML RTUINJ IV PRN (01:28)
--- NOTE | 2018-04-21 02:03 | RADIOLOGY REPORT (SQ) ---
EXAM DESCRIPTION: XR CHEST 1 VIEW COMPLETED DATE/TME: 04/21/2018 01:23 EXAM DESCRIPTION: Single view of the chest CLINICAL HISTORY: post intubation COMPARISON: None. FINDINGS: Single frontal view of the chest. Endotracheal tube with tip 4 cm above the chuy. NG tube with tip below the diaphragm. The side-port is above the gastroesophageal junction. NG tube. Cardiomediastinal silhouette otherwise has normal size and contour. Patchy left basilar and retrocardiac airspace opacity. No pneumothorax or large effusion. Low lung volumes. Leads overlie the chest. No acute osseous abnormalities. Upper abdominal soft tissues are unremarkable. IMPRESSION: 1. Endotracheal tube in appropriate radiographic position. 2. NG tube with tip in the stomach however the side-port is above the level of the gastroesophageal junction. Recommend advancing 5-10 cm. 3. Patchy retrocardiac airspace opacities may represent pneumonia.
[2018-04-21 02:45] VITALS: BP 129/98
--- NOTE | 2018-04-21 09:01 | EKG REPORT ---
SEVERITY:- ABNORMAL ECG - SINUS RHYTHM NONSPECIFIC T ABNORMALITIES, ANTERIOR LEADS : Confirmed by: Dank Weir 21-Apr-2018 09:00:40
== END 2018-04-21 02:51 | disposition short-term general hospital (02) ==
LOC: ER 20:01
DX: G40.901 Epilepsy, unspecified, not intractable, with status epilepticus (principal); Z79.899 Other long term (current) drug therapy; T42.6X4A Poisoning by other antiepileptic and sedative-hypnotic drugs, undetermined, initial encounter; R40.0 Somnolence; E87.0 Hyperosmolality and hypernatremia; E86.0 Dehydration; D72.829 Elevated white blood cell count, unspecified; F31.9 Bipolar disorder, unspecified; F84.0 Autistic disorder; R29.6 Repeated falls; S00.212A Abrasion of left eyelid and periocular area, initial encounter; X58.XXXA Exposure to other specified factors, initial encounter; J33.8 Other polyp of sinus; I10 Essential (primary) hypertension; Z88.8 Allergy status to other drugs, medicaments and biological substances
CPT/HCPCS: 93005; 99291; 96361; 51702; 96374; 36415; 82962; 82140; 82550; 83735; 84443; 85025; 83874 ×2; 80053; 81001; 80164; 71045; 70450; 94660; 93010; 31500; J3490 ×2; J2250; J7030; J7120; J1953

== ENCOUNTER 2018-06-03 16:20 | Emergency (ER) | payer MEDICARE, MEDICAID ==
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
[2018-06-03 17:57] LABS: ABSOLUTE EOSINOPHILS # (AUTO) 0.1 10^3/uL (0.0-0.6); ABSOLUTE LYMPHOCYTES (AUTO) 4.3 10^3/uL (0.5-4.7); ABSOLUTE MONOCYTES (AUTO) 0.7 10^3/uL (0.1-1.4); ABSOLUTE NEUT (AUTO) 4.6 10^3/uL (1.7-8.2); BASOPHILS % (AUTO) 0.4 % (0-2); EOSINOPHILS % (AUTO) 0.8 % (0-6); HEMATOCRIT 34.6 % (37.9-51.0); HEMOGLOBIN 11.8 g/dL (13.5-17.0); LYMPHOCYTES % (AUTO) 44.2 % (13-45); MEAN CORPUSCULAR HEMOGLOBIN 34.9 pg (27.0-33.4); MEAN CORPUSCULAR VOLUME 103 fl (80-97); MONOCYTES % (AUTO) 7.1 % (3-13); PLATELET COUNT 399 10^3/uL (150-450); RED BLOOD COUNT 3.37 10^6/uL (4.35-5.55); RED CELL DISTRIBUTION WIDTH 13.4 % (11.5-14.0); SEGMENTED NEUTROPHILS % (AUTO) 47.5 % (42-78); TOTAL CELLS COUNTED % (AUTO) 100 %; WHITE BLOOD COUNT 9.8 10^3/uL (4.0-10.5)
[2018-06-03 18:16] LABS: ALANINE AMINOTRANSFERASE 20 U/L (21-72); ALBUMIN 4.5 g/dL (3.5-5.0); ALKALINE PHOSPHATASE 89 U/L (38-126); ANION GAP 10 (5-19); ASPARTATE AMINO TRANSFERASE 22 U/L (17-59); BILIRUBIN,DIRECT 0.3 mg/dL (0.0-0.4); BILIRUBIN,TOTAL 0.4 mg/dL (0.2-1.3); BLOOD UREA NITROGEN 13 mg/dL (7-20); CALCIUM 10.4 mg/dL (8.4-10.2); CARBON DIOXIDE 27 mmol/L (22-30); CHLORIDE 107 mmol/L (98-107); GLUCOSE 90 mg/dL (75-110); POTASSIUM 4.4 mmol/L (3.6-5.0); SODIUM 143.8 mmol/L (137-145); TOTAL PROTEIN 7.5 g/dL (6.3-8.2)
[2018-06-03 18:19] LABS: ACETAMINOPHEN < 10 ug/mL (10-30); ALCOHOL < 10 mg/dL (NONE DETECTED); SALICYLATE < 1.0 mg/dL (2.0-20.0)
[2018-06-03 18:48] LABS: APPEARANCE,URINE CLEAR; BILIRUBIN,URINE NEGATIVE (NEGATIVE); COLOR,URINE YELLOW; GLUCOSE, URINE NEGATIVE (NEGATIVE); KETONES,URINE NEGATIVE (NEGATIVE); LEUKOCYTE ESTERASE,URINE NEGATIVE (NEGATIVE); NITRITE,URINE NEGATIVE (NEGATIVE); PROTEIN,URINE NEGATIVE (NEGATIVE); URINE SPECIFIC GRAVITY 1.024; UROBILINOGEN,URINE NEGATIVE mg/dL (<2.0)
[2018-06-03 19:07] LABS: URINE AMPHETAMINES SCREEN NEGATIVE; URINE BARBITURATES SCREEN NEGATIVE; URINE BENZODIAZEPINES SCREEN NEGATIVE; URINE COCAINE SCREEN NEGATIVE; URINE MARIJUANA (THC) SCREEN NEGATIVE; URINE METHADONE SCREEN NEGATIVE; URINE PHENCYCLIDINE SCREEN NEGATIVE
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
[2018-06-03] MEDS ORDERED: DIVALPROEX SODIUM 500 MG TAB.SR.24H PO ONE (21:19)
[2018-06-03] MEDS ORDERED: TRAZODONE HCL 50 MG TABLET PO ONE (23:19)
--- NOTE | 2018-06-04 09:28 | ER Document Report ---
Doctor's Note Notes: Patient was seen and evaluated by myself. Patient is a 22-year-old male with a history of bipolar disorder, severe autism, epilepsy who presents to the emergency department for aggressive behavior. Mom told the admitting physician that the patient was taken off his seizure medication and placed on Ativan. She thinks that this caused the patient's behavior to worsen. No complaints overnight per nursing. Patient's vital signs are stable. Patient has no complaints in the room. Awaiting behavioral health recommendations. 06/04/18 18:21 Behavioral health evaluated the patient. We will discharge the patient home. We are going to discontinue the Ativan, Depakote, trazodone. We are going to add Tegretol, Trileptal, clonidine, BuSpar.
--- NOTE | 2018-06-04 12:55 | EKG REPORT ---
SEVERITY:- BORDERLINE ECG - SINUS RHYTHM INFERIOR Q WAVES, PROBABLY NORMAL VARIATION : Confirmed by: Dank Weir 04-Jun-2018 12:54:24
--- NOTE | 2018-06-04 12:55 | EKG REPORT ---
SEVERITY:- NORMAL ECG - SINUS RHYTHM : Confirmed by: Dank Weir 04-Jun-2018 12:54:19
[2018-06-04 16:51] VITALS: BP 116/76
== END 2018-06-04 18:35 | disposition home or self-care (01) ==
LOC: ER 16:20
DX: F84.0 Autistic disorder (principal); F91.1 Conduct disorder, childhood-onset type; G40.909 Epilepsy, unspecified, not intractable, without status epilepticus; I10 Essential (primary) hypertension
CPT/HCPCS: 93005; 99284; 36415; 80307 ×4; 85025; 80053; 81001; 93010; A9270

== ENCOUNTER 2018-08-01 09:23 | Emergency (ER) | payer MEDICARE, MEDICAID ==
[2018-08-01 10:10] LABS: APPEARANCE,URINE CLEAR; BILIRUBIN,URINE NEGATIVE (NEGATIVE); COLOR,URINE YELLOW; GLUCOSE, URINE NEGATIVE (NEGATIVE); KETONES,URINE NEGATIVE (NEGATIVE); LEUKOCYTE ESTERASE,URINE NEGATIVE (NEGATIVE); NITRITE,URINE NEGATIVE (NEGATIVE); PROTEIN,URINE NEGATIVE (NEGATIVE); URINE SPECIFIC GRAVITY 1.025; UROBILINOGEN,URINE NEGATIVE mg/dL (<2.0)
--- NOTE | 2018-08-01 11:00 | ER Document Report ---
ED GI/ - General Chief Complaint: Urinary Problem Stated Complaint: UTI SYMPTOMS Time Seen by Provider: 08/01/18 10:42 Primary Care Provider: RODOLFO DEE FNP-C [Primary Care Provider] - 08/03/18 Mode of Arrival: Ambulatory Information source: Patient, Parent Notes: 23-year-old male presented to ED for complaint of dysuria last night. Patient's mother states the patient has been experiencing symptoms without improvement. Patient is autistic. Patient is alert is able to answer questions respirations regular and unlabored and speaking in full sentences. TRAVEL OUTSIDE OF THE [place] IN LAST 30 DAYS: No - HPI Patient complains to provider of: Dysuria - Pain with urination Onset: Yesterday Timing/Duration: Intermittent Quality of pain: Burning Severity at maximum: Moderate Pain Level: 0 Location: Other - Pain with urination Associated symptoms: Other - Burning with urination Exacerbated by: Other - Urination Relieved by: Denies Similar symptoms previously: No Recently seen / treated by doctor: No - Related Data Allergies/Adverse Reactions: lorazepam [From Ativan] Allergy (Severe, Verified 06/03/18 16:31) risperidone [From Risperdal] Allergy (Verified 06/03/18 16:31) Past Medical History - General Information source: Parent - Social History Smoking Status: Never Smoker Cigarette use (# per day): No Chew tobacco use (# tins/day): No Smoking Education Provided: No Frequency of alcohol use: None Drug Abuse: None Lives with: Family Family History: Reviewed & Not Pertinent Patient has suicidal ideation: No Patient has homicidal ideation: No - Past Medical History Cardiac Medical History: Reports: Hx Hypertension Pulmonary Medical History: Reports: None EENT Medical History: Reports: None Neurological Medical History: Reports: Hx Seizures Endocrine Medical History: Reports: None Renal/ Medical History: Reports: None Malignancy Medical History: Reports None GI Medical History: Reports: None Musculoskeletal Medical History: Reports None Skin Medical History: Reports None Psychiatric Medical History: Reports: Hx Attention Deficit Hyperactivity Disorder, Hx Bipolar Disorder, Other - autistic Traumatic Medical History: Reports: None Infectious Medical History: Reports: None Surgical Hx: Negative Past Surgical History: Reports: None - Immunizations Immunizations up to date: Yes Hx Diphtheria, Pertussis, Tetanus Vaccination: Yes Review of Systems - Review of Systems Constitutional: No symptoms reported EENT: No symptoms reported Cardiovascular: No symptoms reported Respiratory: No symptoms reported Gastrointestinal: No symptoms reported Genitourinary: Burning Male Genitourinary: No symptoms reported Musculoskeletal: No symptoms reported Skin: No symptoms reported Hematologic/Lymphatic: No symptoms reported Neurological/Psychological: No symptoms reported -: Yes All other systems reviewed and negative Physical Exam - Vital signs Vitals: Temp Pulse Resp BP Pulse Ox 98.0 F 74 16 117/73 96 08/01/18 09:27 08/01/18 09:27 08/01/18 09:27 08/01/18 09:27 08/01/18 09:27 Interpretation: Normal - General General appearance: Appears well, Alert - HEENT Head: Normocephalic, Atraumatic Eyes: Normal Pupils: PERRL - Respiratory Respiratory status: No respiratory distress Chest status: Nontender Breath sounds: Normal Chest palpation: Normal - Cardiovascular Rhythm: Regular Heart sounds: Normal auscultation Murmur: No - Abdominal Inspection: Normal Distension: No distension Bowel sounds: Normal Tenderness: Nontender Organomegaly: No organomegaly - Back Back: Normal, Nontender - Extremities General upper extremity: Normal inspection, Nontender, Normal color, Normal ROM, Normal temperature General lower extremity: Normal inspection, Nontender, Normal color, Normal ROM, Normal temperature, Normal weight bearing. No: Erum's sign - Neurological Neuro grossly intact: Yes Cognition: Normal Orientation: AAOx4 [place] Coma Scale Eye Opening: Spontaneous [place] Coma Scale Verbal: Oriented [place] Coma Scale Motor: Obeys Commands Saud Coma Scale Total: 15 Speech: Normal Motor strength normal: LUE, RUE, LLE, RLE Sensory: Normal - Psychological Associated symptoms: Normal affect, Normal mood - Skin Skin Temperature: Warm Skin Moisture: Dry Skin Color: Normal Course - Re-evaluation Re-evalutation: 08/01/18 22:[address] Geiger who stated that the patient just needs to follow-up with primary doctor and get a repeat urine. Patient was discharged home. - Vital Signs Vital signs: Temp Pulse Resp BP Pulse Ox 97.9 F 77 18 111/64 96 08/01/18 11:10 08/01/18 11:10 08/01/18 11:10 08/01/18 11:10 08/01/18 11:10 - Laboratory Laboratory results interpreted by me: 08/01/18 09:40 Urine Blood MODERATE H Discharge - Discharge Clinical Impression: Pain with urination Hematuria Qualifiers: Hematuria type: benign essential microscopic Qualified Code(s): R31.1 - Benign essential microscopic hematuria Condition: Stable Disposition: HOME, SELF-CARE Additional Instructions: Hematuria Hematuria, or blood in your urine, can be caused by minor medical problems, such as a bladder infection, or by more serious medical conditions, such as kidney stones or even tumors of the bladder or kidney. If the cause of the hematuria is known (such as a bladder infection) and can be treated, it may not need further evaluation. If the cause is not known, it will usually require further evaluation by a specialist, such as a urologist. In particular, unexplained hematuria in the older patient must be evaluated to rule out a serious condition, such as a bladder or kidney tumor. If the hematuria worsens or you are passing clots and then are unable to urinate, you should be re-evaluated. A catheter may need to be placed in the bladder to permit passage of urine. If you develop high fever, severe pain, or other new or worsening symptoms, return to the Emergency Department for re- evaluation. Please increase fluid intake. Sure to follow-up with the primary care doctor in the next 2-3 days to have a repeat urine checked for blood. I have given you the written report of today's urine P to take with you to the appointment. If he continues to have blood he will need a urology follow-up. FOLLOW-UP CARE: If you have been referred to a physician for follow-up care, call the physicians office for an appointment as you were instructed or within the next two days. If you experience worsening or a significant change in your symptoms, notify the physician immediately or return to the Emergency Department at any time for re-evaluation. Referrals: RODOLFO DEE FNP-C [Primary Care Provider] - 08/03/18
[2018-08-01 11:12] VITALS: BP 111/64
== END 2018-08-01 11:12 | disposition home or self-care (01) ==
LOC: ER 09:23
DX: R31.1 Benign essential microscopic hematuria (principal); R30.0 Dysuria; I10 Essential (primary) hypertension
CPT/HCPCS: 81001; 99283

== ENCOUNTER 2018-08-04 10:18 | Emergency (ER) | payer MEDICARE, MEDICAID ==
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
[2018-08-04 10:59] LABS: APPEARANCE,URINE CLOUDY; BILIRUBIN,URINE MODERATE (NEGATIVE); CALCIUM OXALATE CRYSTALS,URINE TOO NUMEROUS TO CNT /HPF; GLUCOSE, URINE NEGATIVE (NEGATIVE); KETONES,URINE TRACE mg/dL (NEGATIVE); LEUKOCYTE ESTERASE,URINE TRACE (NEGATIVE); NITRITE,URINE NEGATIVE (NEGATIVE); PROTEIN,URINE 30 mg/dL (NEGATIVE); URINE SPECIFIC GRAVITY 1.029
[2018-08-04 11:00] LABS: COLOR,URINE DARK YELLOW
[2018-08-04 11:11] LABS: URINE AMPHETAMINES SCREEN NEGATIVE; URINE BARBITURATES SCREEN NEGATIVE; URINE BENZODIAZEPINES SCREEN NEGATIVE; URINE COCAINE SCREEN NEGATIVE; URINE MARIJUANA (THC) SCREEN NEGATIVE; URINE METHADONE SCREEN NEGATIVE; URINE PHENCYCLIDINE SCREEN NEGATIVE
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
[2018-08-04 12:11] LABS: ALANINE AMINOTRANSFERASE 23 U/L (21-72); ALBUMIN 4.4 g/dL (3.5-5.0); ALKALINE PHOSPHATASE 124 U/L (38-126); ANION GAP 11 (5-19); ASPARTATE AMINO TRANSFERASE 22 U/L (17-59); BILIRUBIN,DIRECT 0.2 mg/dL (0.0-0.4); BILIRUBIN,TOTAL 0.3 mg/dL (0.2-1.3); BLOOD UREA NITROGEN 13 mg/dL (7-20); CALCIUM 9.9 mg/dL (8.4-10.2); CARBON DIOXIDE 29 mmol/L (22-30); CHLORIDE 106 mmol/L (98-107); GLUCOSE 90 mg/dL (75-110); POTASSIUM 4.6 mmol/L (3.6-5.0); SODIUM 145.5 mmol/L (137-145)
[2018-08-04 12:31] VITALS: BP 106/63
== END 2018-08-04 12:33 | disposition home or self-care (01) ==
LOC: ER 10:18
DX: N30.01 Acute cystitis with hematuria (principal); F84.0 Autistic disorder; I10 Essential (primary) hypertension
CPT/HCPCS: 36415; 80053; 80307; 81001; 99284

== ENCOUNTER 2018-08-24 13:36 | Emergency (ER) | payer MEDICARE, MEDICAID ==
[2018-08-24 13:49] VITALS: BP 123/84
[2018-08-24] MEDS ORDERED: ONDANSETRON 4 MG TAB.RAPDIS PO ONE (13:58)
--- NOTE | 2018-08-24 13:59 | ER Document Report ---
ED Medical Screen (RME) - General Chief Complaint: Vomiting Stated Complaint: VOMITTING Time Seen by Provider: 08/24/18 13:56 Notes: 23-year-old male patient with autism and some MR reports vomiting since last night. There is no pain, no diarrhea, no fever. I have greeted and performed a rapid initial assessment of this patient. A comprehensive ED assessment and evaluation of the patient, analysis of test results and completion of the medical decision making process will be conducted by additional ED providers. TRAVEL OUTSIDE OF THE [place] IN LAST 30 DAYS: No - Related Data Allergies/Adverse Reactions: lorazepam [From Ativan] Allergy (Severe, Verified 08/24/18 13:38) risperidone [From Risperdal] Allergy (Verified 08/24/18 13:38) Past Medical History - Social History Chew tobacco use (# tins/day): No Frequency of alcohol use: None Drug Abuse: None - Past Medical History Cardiac Medical History: Reports: Hx Hypertension Neurological Medical History: Reports: Hx Seizures Renal/ Medical History: Denies: Hx Peritoneal Dialysis Psychiatric Medical History: Reports: Hx Attention Deficit Hyperactivity Disorder, Hx Bipolar Disorder - Immunizations Immunizations up to date: Yes Hx Diphtheria, Pertussis, Tetanus Vaccination: Yes Physical Exam - Vital signs Vitals: Temp Pulse Resp BP Pulse Ox 97.7 F 86 16 123/84 96 08/24/18 13:48 08/24/18 13:48 08/24/18 13:48 08/24/18 13:48 08/24/18 13:48 Course - Vital Signs Vital signs: Temp Pulse Resp BP Pulse Ox 97.7 F 86 16 123/84 96 08/24/18 13:48 08/24/18 13:48 08/24/18 13:48 08/24/18 13:48 08/24/18 13:48
[2018-08-24 14:34] LABS: ABSOLUTE EOSINOPHILS # (AUTO) 0.1 10^3/uL (0.0-0.6); ABSOLUTE LYMPHOCYTES (AUTO) 2.5 10^3/uL (0.5-4.7); ABSOLUTE MONOCYTES (AUTO) 0.6 10^3/uL (0.1-1.4); ABSOLUTE NEUT (AUTO) 3.2 10^3/uL (1.7-8.2); BASOPHILS % (AUTO) 0.5 % (0-2); EOSINOPHILS % (AUTO) 1.2 % (0-6); HEMATOCRIT 38.3 % (37.9-51.0); HEMOGLOBIN 12.9 g/dL (13.5-17.0); LYMPHOCYTES % (AUTO) 38.8 % (13-45); MEAN CORPUSCULAR HGB CONC 33.7 g/dL (32.0-36.0); MEAN CORPUSCULAR VOLUME 95 fl (80-97); MONOCYTES % (AUTO) 9.8 % (3-13); PLATELET COUNT 303 10^3/uL (150-450); RED BLOOD COUNT 4.03 10^6/uL (4.35-5.55); RED CELL DISTRIBUTION WIDTH 12.7 % (11.5-14.0); SEGMENTED NEUTROPHILS % (AUTO) 49.7 % (42-78); TOTAL CELLS COUNTED % (AUTO) 100 %; WHITE BLOOD COUNT 6.4 10^3/uL (4.0-10.5)
[2018-08-24 14:41] LABS: ALANINE AMINOTRANSFERASE 28 U/L (21-72); ALBUMIN 4.1 g/dL (3.5-5.0); ALKALINE PHOSPHATASE 119 U/L (38-126); ANION GAP 11 (5-19); ASPARTATE AMINO TRANSFERASE 25 U/L (17-59); BILIRUBIN,DIRECT 0.3 mg/dL (0.0-0.4); BILIRUBIN,TOTAL 0.4 mg/dL (0.2-1.3); BLOOD UREA NITROGEN 11 mg/dL (7-20); CARBON DIOXIDE 26 mmol/L (22-30); CHLORIDE 106 mmol/L (98-107); GLUCOSE 98 mg/dL (75-110); SODIUM 143.2 mmol/L (137-145); TOTAL PROTEIN 7.3 g/dL (6.3-8.2)
--- NOTE | 2018-08-24 14:48 | ER Document Report ---
ED General - General Chief Complaint: Vomiting Stated Complaint: VOMITTING Time Seen by Provider: 08/24/18 13:56 Mode of Arrival: Ambulatory Information source: Patient TRAVEL OUTSIDE OF THE [place] IN LAST 30 DAYS: No - HPI Patient complains to provider of: Nausea and vomiting since yesterday Onset: Other - Last night Onset/Duration: Sudden Severity: None Associated symptoms: denies: Chills, Fever Exacerbated by: Denies Relieved by: Denies Similar symptoms previously: No Recently seen / treated by doctor: No Notes: 23-year-old male coming in today with chief complaint of vomiting since last night. He said no fevers or chills. No diarrhea. No abdominal pain. No history of diabetes. No chest pain or shortness of breath. No dizziness, lightheadedness or syncope. - Related Data Allergies/Adverse Reactions: lorazepam [From Ativan] Allergy (Severe, Verified 08/24/18 13:38) risperidone [From Risperdal] Allergy (Verified 08/24/18 13:38) Past Medical History - General Information source: Patient - Social History Smoking Status: Never Smoker Chew tobacco use (# tins/day): No Frequency of alcohol use: None Drug Abuse: None Family History: Reviewed & Not Pertinent Patient has suicidal ideation: No Patient has homicidal ideation: No - Past Medical History Cardiac Medical History: Reports: Hx Hypertension Neurological Medical History: Reports: Hx Seizures Renal/ Medical History: Denies: Hx Peritoneal Dialysis Psychiatric Medical History: Reports: Hx Attention Deficit Hyperactivity Diso rder, Hx Bipolar Disorder - Immunizations Immunizations up to date: Yes Hx Diphtheria, Pertussis, Tetanus Vaccination: Yes Review of Systems - Review of Systems Notes: Constitutional: No fevers. No chills. EENT: No eye redness. No eye pain. No ear pain. No sore throat. Cardiovascular: No chest pain. No palpitations. Respiratory: No cough. No shortness of breath. No respiratory distress. Gastrointestinal: Positive nausea and vomiting. Negative for diarrhea Genitourinary: Atraumatic. No lesions. No pain. No discharge. Musculoskeletal: Atraumatic. No swelling. No deformities. Skin: No rash or lesions. Lymphatic: No swollen lymph nodes. Neurologic: No headache. No syncope. Psychiatric: No suicidal or homicidal ideation. Physical Exam - Vital signs Vitals: Temp Pulse Resp BP Pulse Ox 97.7 F 86 16 123/84 96 08/24/18 13:48 08/24/18 13:48 08/24/18 13:48 08/24/18 13:48 08/24/18 13:48 - Notes Notes: General: Well-developed, well-nourished. In no acute distress. Non-toxic appearing. Cardiac: Well-perfused. Regular rate and rhythm. No murmurs, rubs, or gallops. Pulmonary: No respiratory distress. No cyanosis. Bilateral lung fiels are clear to auscultation. Abdominal: Non-distended. Non-rigid. Bowels sounds are present in all four quadrants. No guarding or rebound. HEENT: Head is atraumatic. Conjunctivae not reddened. No tearing. PERRL. EOMI. Orbits atraumatic. No periorbital swelling or erythema. Oropharynx is without erythema, swelling, or exudates. Neck: Supple. No adenopathy. No meningismus. Dermatologic: Warm with good turgor. No rash. Atraumatic. Chest: Atraumatic. No chest wall tenderness to palpation. Musculoskeletal: Moves all extremities well. No range of motion deficits. no muscular or joint tenderness. No paraspinal muscle tenderness. no midline spinal tenderness or step-off. Genitourinary: Examination deferred Neurologic: No gross neurologic deficits. Psychiatric: Normal mood. Course - Re-evaluation Re-evalutation: 08/24/18 14:48 Patient examination and vital signs are. He does not look like he is in any distress. He is in receipt of 8 mg of ODT Zofran in Pit. Appropriate labs have been ordered. We will follow them through. Suspect everything will be normal. In the meantime will do a p.o. challenge. 08/24/18 15:13 I asked the nursing staff to start a p.o. challenge on the patient. I was in formed by 1 of the technicians that the patient and his brother had just left. He did not receive any information from me about his lab work. I did not ascertain whether his nausea and vomiting had improved or not. Apparently he was feeling better and they decided to leave without further treatment, advice, or paperwork. I will document this as a patient elopement. - Vital Signs Vital signs: Temp Pulse Resp BP Pulse Ox 97.7 F 86 16 123/84 96 08/24/18 13:48 08/24/18 13:48 08/24/18 13:48 08/24/18 13:48 08/24/18 13:48 - Laboratory Result Diagrams: 08/24/18 14:11 08/24/18 14:11 Laboratory results interpreted by me: 08/24/18 08/24/18 14:11 14:24 RBC 4.03 L Hgb 12.9 L Urine Bilirubin MODERATE H Urine Urobilinogen 2.0 H Discharge - Discharge Clinical Impression: Nausea and vomiting Qualifiers: Vomiting type: unspecified Vomiting Intractability: non-intractable Qualified Code(s): R11.2 - Nausea with vomiting, unspecified Condition: Good Disposition: ELOPED
[2018-08-24 15:05] LABS: APPEARANCE,URINE SLIGHTLY-CLOUDY; BILIRUBIN,URINE MODERATE (NEGATIVE); COLOR,URINE YELLOW; GLUCOSE, URINE NEGATIVE (NEGATIVE); KETONES,URINE NEGATIVE (NEGATIVE); LEUKOCYTE ESTERASE,URINE NEGATIVE (NEGATIVE); NITRITE,URINE NEGATIVE (NEGATIVE); PROTEIN,URINE NEGATIVE (NEGATIVE); URINE SPECIFIC GRAVITY 1.027
== END 2018-08-24 15:15 | disposition left against medical advice (07) ==
LOC: ER 13:36
DX: R11.2 Nausea with vomiting, unspecified (principal); Z88.8 Allergy status to other drugs, medicaments and biological substances; I10 Essential (primary) hypertension; Z53.20 Procedure and treatment not carried out because of patient's decision for unspecified reasons
CPT/HCPCS: 99281; 36415; 85025; 80053; 81001; A9270; S0119

== ENCOUNTER 2018-09-30 13:47 | Emergency (ER) | payer MEDICARE, MEDICAID ==
[2018-09-30] MEDS ORDERED: HALOPERIDOL LACTATE INJ 5 MG/1 ML VIAL IM ONE (14:11)
[2018-09-30] MEDS ORDERED: BENZTROPINE MESYLATE INJ 2 MG/2 ML AMPULE IM ONE (14:12)
[2018-09-30 15:44] LABS: ABSOLUTE EOSINOPHILS # (AUTO) 0.1 10^3/uL (0.0-0.6); ABSOLUTE LYMPHOCYTES (AUTO) 2.3 10^3/uL (0.5-4.7); ABSOLUTE MONOCYTES (AUTO) 0.6 10^3/uL (0.1-1.4); BASOPHILS % (AUTO) 0.4 % (0-2); EOSINOPHILS % (AUTO) 0.9 % (0-6); HEMATOCRIT 36.4 % (37.9-51.0); HEMOGLOBIN 12.2 g/dL (13.5-17.0); MEAN CORPUSCULAR HEMOGLOBIN 31.5 pg (27.0-33.4); MEAN CORPUSCULAR HGB CONC 33.5 g/dL (32.0-36.0); MEAN CORPUSCULAR VOLUME 94 fl (80-97); PLATELET COUNT 257 10^3/uL (150-450); RED BLOOD COUNT 3.87 10^6/uL (4.35-5.55); RED CELL DISTRIBUTION WIDTH 13.4 % (11.5-14.0); SEGMENTED NEUTROPHILS % (AUTO) 56.7 % (42-78); TOTAL CELLS COUNTED % (AUTO) 100 %
[2018-09-30 16:08] LABS: ACETAMINOPHEN < 10 ug/mL (10-30); ALANINE AMINOTRANSFERASE 29 U/L (21-72); ALBUMIN 3.7 g/dL (3.5-5.0); ALCOHOL < 10 mg/dL (NONE DETECTED); ALKALINE PHOSPHATASE 110 U/L (38-126); ANION GAP 11 (5-19); ASPARTATE AMINO TRANSFERASE 27 U/L (17-59); BILIRUBIN,DIRECT 0.2 mg/dL (0.0-0.4); BILIRUBIN,TOTAL 0.4 mg/dL (0.2-1.3); BLOOD UREA NITROGEN 11 mg/dL (7-20); CALCIUM 9.3 mg/dL (8.4-10.2); CARBON DIOXIDE 26 mmol/L (22-30); CHLORIDE 105 mmol/L (98-107); GLUCOSE 82 mg/dL (75-110); POTASSIUM 4.4 mmol/L (3.6-5.0); SALICYLATE < 1.0 mg/dL (2.0-20.0); SODIUM 141.8 mmol/L (137-145); TOTAL PROTEIN 6.4 g/dL (6.3-8.2)
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
[2018-09-30] MEDS ORDERED: CARBAMAZEPINE 200 MG TABLET PO SCH (18:00)
[2018-09-30] MEDS ORDERED: BUSPIRONE HCL 10 MG TABLET PO SCH (18:00)
[2018-09-30] MEDS ORDERED: PROPRANOLOL HCL 20 MG TABLET PO SCH (18:00)
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
--- NOTE | 2018-09-30 20:53 | EKG REPORT ---
SEVERITY:- NORMAL ECG - SINUS RHYTHM : Confirmed by: Oleg Jackson MD 30-Sep-2018 20:52:43
[2018-09-30] MEDS: BUSPIRONE HCL 10 MG TABLET PO SCH (21:14)
[2018-09-30] MEDS: CARBAMAZEPINE 200 MG TABLET PO SCH (21:14)
[2018-09-30 21:35] LABS: APPEARANCE,URINE CLEAR; BILIRUBIN,URINE NEGATIVE (NEGATIVE); COLOR,URINE YELLOW; GLUCOSE, URINE NEGATIVE (NEGATIVE); KETONES,URINE NEGATIVE (NEGATIVE); LEUKOCYTE ESTERASE,URINE NEGATIVE (NEGATIVE); NITRITE,URINE NEGATIVE (NEGATIVE); PROTEIN,URINE NEGATIVE (NEGATIVE); URINE SPECIFIC GRAVITY 1.014; UROBILINOGEN,URINE NEGATIVE mg/dL (<2.0)
[2018-09-30 21:56] LABS: URINE AMPHETAMINES SCREEN NEGATIVE; URINE BARBITURATES SCREEN NEGATIVE; URINE BENZODIAZEPINES SCREEN NEGATIVE; URINE COCAINE SCREEN NEGATIVE; URINE MARIJUANA (THC) SCREEN NEGATIVE; URINE METHADONE SCREEN NEGATIVE; URINE PHENCYCLIDINE SCREEN NEGATIVE
[2018-09-30] MEDS ORDERED: OXCARBAZEPINE 150 MG TABLET PO SCH ×2 (22:00)
[2018-10-01 05:36] VITALS: BP 129/78
[2018-10-01] MEDS: BUSPIRONE HCL 10 MG TABLET PO SCH (09:50)
[2018-10-01] MEDS: CARBAMAZEPINE 200 MG TABLET PO SCH (09:50)
[2018-10-01] MEDS ORDERED: PROPRANOLOL HCL 20 MG TABLET PO SCH (10:00)
[2018-10-01] MEDS ORDERED: BUSPIRONE HCL 10 MG TABLET PO SCH (10:00)
[2018-10-01] MEDS ORDERED: CARBAMAZEPINE 200 MG TABLET PO SCH (10:00)
--- NOTE | 2018-10-01 11:47 | RADIOLOGY REPORT (SQ) ---
EXAM DESCRIPTION: CT ABD/PELVIS NO ORAL OR IV COMPLETED DATE/TIME: 10/01/2018 11:30 am REASON FOR STUDY: right flank pain and hematuria COMPARISON: None. TECHNIQUE: CT scan of the abdomen and pelvis performed without intravenous or oral contrast. Images reviewed with lung, soft tissue, and bone windows. Reconstructed coronal and sagittal MPR images revi ewed. All images stored on PACS. All CT scanners at this facility use dose modulation, iterative reconstruction, and/or weight based d osing when appropriate to reduce radiation dose to as low as reasonably achievable (ALARA). [facility]: Dose Right [facility]: CareDose [facility]: Dose Right [facility]: Teradose 4D [facility]: [employer] RADIATION DOSE: CT Rad equipment meets quality standard of care and radiation dose reduction techniq ues were employed. CTDIvol: 5.6 mGy. DLP: 329 mGy-cm.mGy. LIMITATIONS: None. FINDINGS: LOWER CHEST: No significant findings. No nodules or infiltrates. NON-CONTRASTED LIVER, SPLEEN, ADRENALS: Evaluation limited by lack of IV contrast. No identified sign ificant masses. PANCREAS: No masses. No peripancreatic inflammatory changes. GALLBLADDER: No identified stones by CT criteria. No inflammatory changes to suggest cholecystitis. RIGHT KIDNEY AND URETER: No suspicious masses. Assessment limited by lack of IV contrast. 5 mm calc ulus in upper pole calyx. No hydronephrosis or hydroureter. LEFT KIDNEY AND URETER: No suspicious masses. Assessment limited by lack of IV contrast. No signifi cant calcifications. No hydronephrosis or hydroureter. AORTA AND RETROPERITONEUM: No aneurysm. No retroperitoneal masses or adenopathy. BOWEL AND PERITONEAL CAVITY: No obvious masses or inflammatory changes. No free fluid. APPENDIX: Normal. PELVIS, BLADDER, AND ABDOMINAL WALL:No abnormal masses. No free fluid. Bladder normal. BONES: No significant findings. OTHER: No other significant finding. IMPRESSION: 1. 5 MM NONOBSTRUCTING CALYCEAL CALCULUS IN THE UPPER POLE OF THE RIGHT KIDNEY. NO URETERAL CALCULI OR HYDRONEPHROSIS. 2. NO OTHER SIGNIFICANT OR ACUTE PROCESS IN THE ABDOMEN OR PELVIS. COMMENT: Quality ID # [id number]: Final reports with documentation of one or more dose reduction techniques (e.g., Automated exposure control, adjustment of the mA and/or kV according to patient size, use of iterative reconstruction technique) TECHNICAL DOCUMENTATION: JOB ID: [id number] [employer]- All Rights Reserved Reading location - IP/workstation name: [email or web address]
--- NOTE | 2018-10-01 12:29 | ER Document Report ---
Doctor's Note Notes: 10/01/18 12:26 Patient has been seen and evaluated this morning. No acute distress. Patient now back to his baseline. More likely patient can be discharged. CT scan was ordered due to his reported hematuria. Has a 5 mm nonobstructing calculus in the upper pole of the right kidney which does not appear to be causing any immediate harm. Patient may be having some intermittent kidney stones. Patient will need to be seen by urologist as an outpatient for this hematuria work-up. Mental health states that he needs to be on 450 mg of Trileptal at night. Will make sure that he gets a proper prescription for that as well. This time will discharge in stable condition. Abdomen/Pelvis CT 10/01/18 11:17 IMPRESSION: 1. 5 MM NONOBSTRUCTING CALYCEAL CALCULUS IN THE UPPER POLE OF THE RIGHT KIDNEY. NO URETERAL CALCULI OR HYDRONEPHROSIS. 2. NO OTHER SIGNIFICANT OR ACUTE PROCESS IN THE ABDOMEN OR PELVIS. Discharge - Discharge Clinical Impression: Autism, Violent behavior, Behavior concern Condition: Stable Disposition: HOME, SELF-CARE Additional Instructions: You have been evaluated by both medical and behavioral health providers while in the emergency department. You have been cleared from both acute medical and psychiatric issues. You have a diagnosis of Autism Spectrum Disorder. Often times it may be difficult to express what you are thinking or feeling, you get frustrated and then have behaviors. These behaviors can look like aggression, depression, anxiety, mood lability and attention deficit issues. Impulse control can be difficult to control. Medication changes took place to help manage your increased behaviors (physical and verbal aggression, agitation). Your medication regimen is: Tegretol 300MG twice a day (continued) Trilpetal 450MG at night (decreased) Buspar 10MG twice a day (continued) Propanolol 20MG three times a day (continued) Medications that were stopped include: Ambien and Trazodone. Do not take these anymore. Follow up care: You should follow up with your medication management provider at [facility] [place] ([facility]) within 5-7 days since medication adjustments took place. You should follow up with [facility] about those specialized services. If your behaviors continue or worsen please contact your physician, utilize mobile crisis or return to the emergency department. Prescriptions: Oxcarbazepine [Trileptal 150 Mg Tablet] 450 mg PO QHS 15 Days #45 tablet Referrals: [facility] [Outside] - Follow up in 1 week [facility] [Outside] - Follow up as needed
--- NOTE | 2018-10-01 16:00 | PSYCHOLOGICAL NOTE ---
Psych Note - Psych Note Date seen by psych provider: 10/01/18 Time seen by psych provider: 11:00 - ED Physician in with patient at 1020. Re evaluation from [id number]. Psych Note: Reason for Consult: 1st re evaluation, Hx Autism, increased behavioral episodes with meanness/physical and verbal aggression Contact Permissions: Mother Erika and Brother at bedside Patient is a 23 year old male in the ED as an overnight hold due to increased behaviors which included both verbal and physical aggression with a diagnosis of Autism Spectrum Disorder. Medications were adjusted last evening (decreased Trileptal) and provided a night of respite. 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 This morning he was courteous and interacted well with staff. He had appropriate interactions with his mother and brother at bedside. Patient was alert and oriented to self, person, place and situation. Mood was anxious with congruent affect as evidenced by pacing and asking about when he was being discharged (per mother this is baseline behavior). He denied SI/HI. He did not appear to be responding to internal stimuli as evidenced by making eye contact when interacting, answering questions and having appropriate interactions. Thought processes were baseline per mother. Conversational speech was baseline per mother. Intellectual abilities are estimated to be average but likely affected by Autism diagnosis. Insight, judgment and impulse control were fair as evidenced by ability to control self (remained calm and cooperative without behavioral incident while in the ED). Mother described patient as "impatient and has bad separation anxiety from her." She stated patient goes to [facility] for medication management and agreed to take him to a follow up appointment within 7 days. She stated "we tried therapy before but it did not work for him." She identified "I am trying to get him into a day program and he was approved for services from [facility], paperwork has been submitted, they have not contacted me and when I have tried to contact them I get voicemail." She stated she planned to call [employer] for assistance with obtaining [facility] services. Diagnosis: Behavioral Episode 299.00 (F84.0) Autism Spectrum Disorder by history Impression/Plan: Patient is cleared from acute psychiatric services. He denied SI/HI and no observed psychosis. He had no behavioral outbursts while in the ED. He was calm, cooperative and easily redirected. He has an Autism diagnosis and often times individuals with this diagnosis have difficulty expressing self, become frustrated, then act out behaviorally (can present as anger, aggression, agitation, depression, anxiety, attention deficit issues and impulse control issues). Mother said she would have him follow up with already established outpatient provider at [facility] for medication management within 7 days. She also stated patient was approved for services from [facility], paperwork had been completed and turned in, no response from [facility] and mother has not had success in reaching out to them. She stated she would contact [facility]. Encouraged her to do so as those would be appropriate level of care/services for patient. Provided mother with the outpatient MH resource sheet which highlighted [facility] for crisis/talk therapy/linkage, listed [facility] contact number for contact about [facility] and highlighted [facility] with documentation to follow up within [address] Rod regarding the management and care of patient. ED Physician in agreement with recommendations.
[2018-10-01] MEDS ORDERED: OXCARBAZEPINE 150 MG TABLET PO SCH (22:00)
== END 2018-10-01 12:39 | disposition home or self-care (01) ==
LOC: ER 13:47
DX: F84.0 Autistic disorder (principal); R45.6 Violent behavior; G40.909 Epilepsy, unspecified, not intractable, without status epilepticus; N20.0 Calculus of kidney; R31.9 Hematuria, unspecified; I10 Essential (primary) hypertension
CPT/HCPCS: 93005; 99285; 96372; 36415; 80307 ×4; 85025; 80053; 81001; 74176; 93010; J0515; A9270 ×6; J1630; J3490

== ENCOUNTER 2018-10-19 16:16 | Emergency (ER) | payer MEDICARE, MEDICAID ==
--- NOTE | 2018-10-19 16:38 | ER Document Report ---
ED Medical Screen (RME) - General Chief Complaint: Urinary Problem Stated Complaint: BLOOD IN URINE Time Seen by Provider: 10/19/18 16:31 Mode of Arrival: Ambulatory Information source: Patient, Parent Notes: Patient presents with his mother for complaints of voiding straight blood. Mom reports that child started off at the beginning of this month with a UTI was treated for it. Was still urinating blood came to the emergency department was diagnosed with a kidney stone. She reports child called her to the bathroom today because he was voiding blood and she reports it is straight blood. Child denies pain. Mom denies fever vomiting diarrhea. She reports they were told the kidney stone was blocking something. Child is in good spirits, he is autistic. I have greeted and performed a rapid initial assessment of this patient. A comprehensive ED assessment and evaluation of the patient, analysis of test results and completion of the medical decision making process will be conducted by additional ED providers. Dictation of this chart was performed using voice recognition software; therefore, there may be some unintended grammatical errors. TRAVEL OUTSIDE OF THE [place] IN LAST 30 DAYS: No - Related Data Allergies/Adverse Reactions: lorazepam [From Ativan] Allergy (Severe, Verified 09/30/18 13:48) risperidone [From Risperdal] Allergy (Verified 09/30/18 13:48) Past Medical History - Past Medical History Cardiac Medical History: Reports: Hx Hypertension Neurological Medical History: Reports: Hx Seizures Renal/ Medical History: Denies: Hx Peritoneal Dialysis Psychiatric Medical History: Reports: Hx Attention Deficit Hyperactivity Disorder, Hx Bipolar Disorder - Immunizations Immunizations up to date: Yes Hx Diphtheria, Pertussis, Tetanus Vaccination: Yes Physical Exam - Vital signs Vitals: Temp Pulse Resp BP Pulse Ox 98.7 F 101 H 18 127/72 H 96 10/19/18 16:24 10/19/18 16:24 10/19/18 16:24 10/19/18 16:24 10/19/18 16:24 Course - Vital Signs Vital signs: Temp Pulse Resp BP Pulse Ox 98.7 F 101 H 18 127/72 H 96 10/19/18 16:24 10/19/18 16:24 10/19/18 16:24 10/19/18 16:24 10/19/18 16:24
[2018-10-19 16:50] LABS: ABSOLUTE BASOPHILS # (AUTO) 0.1 10^3/uL (0.0-0.2); ABSOLUTE EOSINOPHILS # (AUTO) 0.1 10^3/uL (0.0-0.6); ABSOLUTE LYMPHOCYTES (AUTO) 3.3 10^3/uL (0.5-4.7); ABSOLUTE MONOCYTES (AUTO) 0.7 10^3/uL (0.1-1.4); ABSOLUTE NEUT (AUTO) 4.3 10^3/uL (1.7-8.2); BASOPHILS % (AUTO) 0.7 % (0-2); EOSINOPHILS % (AUTO) 1.1 % (0-6); HEMATOCRIT 39.5 % (37.9-51.0); LYMPHOCYTES % (AUTO) 39.2 % (13-45); MEAN CORPUSCULAR HEMOGLOBIN 31.3 pg (27.0-33.4); MEAN CORPUSCULAR HGB CONC 32.9 g/dL (32.0-36.0); MEAN CORPUSCULAR VOLUME 95 fl (80-97); MONOCYTES % (AUTO) 8.5 % (3-13); PLATELET COUNT 340 10^3/uL (150-450); RED BLOOD COUNT 4.15 10^6/uL (4.35-5.55); RED CELL DISTRIBUTION WIDTH 14.1 % (11.5-14.0); SEGMENTED NEUTROPHILS % (AUTO) 50.5 % (42-78); TOTAL CELLS COUNTED % (AUTO) 100 %; WHITE BLOOD COUNT 8.4 10^3/uL (4.0-10.5)
[2018-10-19 17:02] LABS: APPEARANCE,URINE CLOUDY; BILIRUBIN,URINE NEGATIVE (NEGATIVE); CALCIUM OXALATE CRYSTALS,URINE MODERATE /HPF; COLOR,URINE AMBER; GLUCOSE, URINE NEGATIVE (NEGATIVE); KETONES,URINE TRACE mg/dL (NEGATIVE); LEUKOCYTE ESTERASE,URINE NEGATIVE (NEGATIVE); NITRITE,URINE NEGATIVE (NEGATIVE); PROTEIN,URINE 100 mg/dL (NEGATIVE); URINE SPECIFIC GRAVITY 1.029
[2018-10-19 17:12] LABS: ALANINE AMINOTRANSFERASE 34 U/L (21-72); ALBUMIN 4.1 g/dL (3.5-5.0); ALKALINE PHOSPHATASE 123 U/L (38-126); ANION GAP 7 (5-19); ASPARTATE AMINO TRANSFERASE 24 U/L (17-59); BILIRUBIN,DIRECT 0.2 mg/dL (0.0-0.4); BILIRUBIN,TOTAL 0.2 mg/dL (0.2-1.3); BLOOD UREA NITROGEN 13 mg/dL (7-20); CALCIUM 9.7 mg/dL (8.4-10.2); CARBON DIOXIDE 32 mmol/L (22-30); CHLORIDE 107 mmol/L (98-107); GLUCOSE 92 mg/dL (75-110); SODIUM 146.2 mmol/L (137-145); TOTAL PROTEIN 6.9 g/dL (6.3-8.2)
--- NOTE | 2018-10-19 17:28 | RADIOLOGY REPORT (SQ) ---
EXAM DESCRIPTION: CT ABD/PELVIS NO ORAL OR IV COMPLETED DATE/TIME: 10/19/2018 4:53 pm REASON FOR STUDY: voiding straight blood, hx kidney stone blockage COMPARISON: 10/01/2018 TECHNIQUE: CT scan of the abdomen and pelvis performed without intravenous or oral contrast. Images reviewed with lung, soft tissue, and bone windows. Reconstructed coronal and sagittal MPR images revi ewed. All images stored on PACS. All CT scanners at this facility use dose modulation, iterative reconstruction, and/or weight based d osing when appropriate to reduce radiation dose to as low as reasonably achievable (ALARA). [facility]: Dose Right [facility]: CareDose [facility]: Dose Right [facility]: Teradose 4D [facility]: [employer] RADIATION DOSE: CT Rad equipment meets quality standard of care and radiation dose reduction techniq ues were employed. CTDIvol: 6.4 mGy. DLP: 357 mGy-cm.mGy. LIMITATIONS: None. FINDINGS: LOWER CHEST: No significant findings. No nodules or infiltrates. NON-CONTRASTED LIVER, SPLEEN, ADRENALS: Evaluation limited by lack of IV contrast. No identified sign ificant masses. PANCREAS: No masses. No peripancreatic inflammatory changes. GALLBLADDER: No calcified stones. No inflammatory changes to suggest cholecystitis. RIGHT KIDNEY AND URETER: No cysts identified. No solid masses. 4 mm calcified stone in the proximal right ureter with mild hydronephrosis-hydroureter. LEFT KIDNEY AND URETER: No cysts identified. No solid masses. No calcified stones. No hydronephrosis or hydroureter. AORTA AND RETROPERITONEUM: No aneurysm. No retroperitoneal masses or adenopathy. BOWEL AND PERITONEAL CAVITY: No obvious masses or inflammatory changes. No free fluid. APPENDIX: Normal. PELVIS, BLADDER, AND ABDOMINAL WALL:No abnormal masses. No free fluid. Unremarkable bladder. BONES: No acute findings. OTHER: No other significant finding. IMPRESSION: 4 mm calcified stone in the proximal right ureter with mild hydronephrosis-hydroureter. TECHNICAL DOCUMENTATION: JOB ID: [id number] Quality ID # [id number]: Final reports with documentation of one or more dose reduction techniques (e.g., Au tomated exposure control, adjustment of the mA and/or kV according to patient size, use of iterative reconstruction technique) 2010 [employer]- All Rights Reserved Reading location - IP/workstation name: [email or web address]
--- NOTE | 2018-10-19 18:03 | ER Document Report ---
ED General - General Chief Complaint: Urinary Problem Stated Complaint: BLOOD IN URINE Time Seen by Provider: 10/19/18 16:31 Mode of Arrival: Ambulatory Information source: Patient, Parent TRAVEL OUTSIDE OF THE [place] IN LAST 30 DAYS: No - HPI Patient complains to provider of: peeing issac blood Onset: This morning Onset/Duration: Intermittent Quality of pain: No pain Severity: None Associated symptoms: denies: Chills, Diarrhea, Fever, Nausea, Vomiting Exacerbated by: Denies Relieved by: Denies Similar symptoms previously: No Recently seen / treated by doctor: No Notes: 23-year-old male coming in today with chief complaint of issac blood when he pees. This afternoon he was going to the bathroom. He demonstrated to his mom what his urine looks like. Mom notes that the patient's urine has the appearance of mud and as soon as it hits the toilet water it turns it red. He has no fevers or chills. No flank pain. No nausea or vomiting. He was diagnosed with a right upper kidney stone back here on the of last month and today the kidney stone appears to be in the right proximal ureter with mild hydronephrosis. - Related Data Allergies/Adverse Reactions: lorazepam [From Ativan] Allergy (Severe, Verified 09/30/18 13:48) risperidone [From Risperdal] Allergy (Verified 09/30/18 13:48) Past Medical History - General Information source: Patient, Parent - Social History Smoking Status: Never Smoker Family History: Reviewed & Not Pertinent Patient has suicidal ideation: No Patient has homicidal ideation: No - Past Medical History Cardiac Medical History: Reports: Hx Hypertension Neurological Medical History: Reports: Hx Seizures Renal/ Medical History: Denies: Hx Peritoneal Dialysis Psychiatric Medical History: Reports: Hx Attention Deficit Hyperactivity Disorder, Hx Bipolar Disorder - Immunizations Immunizations up to date: Yes Hx Diphtheria, Pertussis, Tetanus Vaccination: Yes Review of Systems - Review of Systems Notes: Constitutional: No fevers. No chills. EENT: No eye redness. No eye pain. No ear pain. No sore throat. Cardiovascular: No chest pain. No palpitations. Respiratory: No cough. No shortness of breath. No respiratory distress. Gastrointestinal: No abdominal pain. No nausea, vomiting, or diarrhea. Genitourinary: Positive for issac hematuria Musculoskeletal: Atraumatic. No swelling. No deformities. Skin: No rash or lesions. Lymphatic: No swollen lymph nodes. Neurologic: No headache. No syncope. Psychiatric: No suicidal or homicidal ideation. Physical Exam - Vital signs Vitals: Temp Pulse Resp BP Pulse Ox 98.7 F 101 H 18 127/72 H 96 10/19/18 16:24 10/19/18 16:24 10/19/18 16:24 10/19/18 16:24 10/19/18 16:24 - Notes Notes: General: Well-developed, well-nourished. In no acute distress. Non-toxic appearing. Cardiac: Well-perfused. Regular rate and rhythm. No murmurs, rubs, or gallops. Pulmonary: No respiratory distress. No cyanosis. Bilateral lung fiels are clear to auscultation. Abdominal: Non-distended. Non-rigid. Bowels sounds are present in all four quadrants. No guarding or rebound. No CVA tenderness HEENT: Head is atraumatic. Conjunctivae not reddened. No tearing. PERRL. EOMI. Orbits atraumatic. No periorbital swelling or erythema. Oropharynx is without erythema, swelling, or exudates. Neck: Supple. No adenopathy. No meningismus. Dermatologic: Warm with good turgor. No rash. Atraumatic. Chest: Atraumatic. No chest wall tenderness to palpation. Musculoskeletal: Moves all extremities well. No range of motion deficits. no muscular or joint tenderness. No paraspinal muscle tenderness. no midline spinal tenderness or step-off. Genitourinary: External genitalia normal Neurologic: No gross neurologic deficits. Psychiatric: Normal mood. Course - Re-evaluation Re-evalutation: 10/19/18 18:08 Patient does not appear to have any kind of infectious source in the urine. Strangely enough does not seem to have a pain or nausea and vomiting. Looks like the stone was originally in the upper pole of the right kidney and now it is in the proximal ureter. BUN and creatinine are unaffected. Made a phone call to the on-call physician for [facility] urology and was trying to get an appointment sooner to have this addressed. - Vital Signs Vital signs: Temp Pulse Resp BP Pulse Ox 98.7 F 101 H 18 127/72 H 96 10/19/18 16:24 10/19/18 16:24 10/19/18 16:24 10/19/18 16:24 10/19/18 16:24 - Laboratory Result Diagrams: 10/19/18 16:42 10/19/18 16:42 Laboratory results interpreted by me: 10/19/18 10/19/18 10/19/18 16:42 16:42 16:42 RBC 4.15 L Hgb 13.0 L RDW 14.1 H Sodium 146.2 H Carbon Dioxide 32 H Urine Protein 100 H Urine Ketones TRACE H Urine Blood LARGE H Urine Urobilinogen 2.0 H Discharge - Discharge Clinical Impression: Ureteral stone with hydronephrosis Condition: Good Disposition: HOME, SELF-CARE Instructions: Kidney Stone ([facility]) Additional Instructions: Please call Laurie Araiza at [facility] urology tomorrow morning. The office opens at 8:00. [phone]. Please let the person at the desk know that you were seen at [facility] emergency department and that the ER provider spoke to Laurie Araiza and you are hoping to get squeezed in for an appointment tomorrow morning but at the latest request to try to get in on Wednesday. In the meantime if your symptoms get worse and you feel you need to be seen again, you may return to the emergency department. Referrals: MARIBEL ARAIZA [Other] - Follow up as needed
[2018-10-19 18:30] VITALS: BP 116/69
== END 2018-10-19 18:27 | disposition home or self-care (01) ==
LOC: ER 16:16
DX: N13.1 Hydronephrosis with ureteral stricture, not elsewhere classified (principal); R31.9 Hematuria, unspecified; I10 Essential (primary) hypertension
CPT/HCPCS: 36415; 74176; 80053; 81001; 85025; 99284

== ENCOUNTER → 2019-01-25 | Outpatient (CLI) | payer MEDICARE, MEDICAID ==
[2019-01-25 12:43] LABS: ABSOLUTE EOSINOPHILS # (AUTO) 0.1 10^3/uL (0.0-0.6); ABSOLUTE LYMPHOCYTES (AUTO) 2.5 10^3/uL (0.5-4.7); ABSOLUTE MONOCYTES (AUTO) 0.7 10^3/uL (0.1-1.4); ABSOLUTE NEUT (AUTO) 4.8 10^3/uL (1.7-8.2); BASOPHILS % (AUTO) 0.6 % (0-2); EOSINOPHILS % (AUTO) 0.8 % (0-6); HEMATOCRIT 42.1 % (37.9-51.0); HEMOGLOBIN 14.1 g/dL (13.5-17.0); LYMPHOCYTES % (AUTO) 30.8 % (13-45); MEAN CORPUSCULAR HEMOGLOBIN 31.1 pg (27.0-33.4); MEAN CORPUSCULAR HGB CONC 33.6 g/dL (32.0-36.0); MEAN CORPUSCULAR VOLUME 93 fl (80-97); MONOCYTES % (AUTO) 8.6 % (3-13); PLATELET COUNT 391 10^3/uL (150-450); RED BLOOD COUNT 4.55 10^6/uL (4.35-5.55); SEGMENTED NEUTROPHILS % (AUTO) 59.2 % (42-78); TOTAL CELLS COUNTED % (AUTO) 100 %; WHITE BLOOD COUNT 8.1 10^3/uL (4.0-10.5)
[2019-01-25 13:01] LABS: ALBUMIN 4.6 g/dL (3.5-5.0); ALKALINE PHOSPHATASE 139 U/L (38-126); ANION GAP 10 (5-19); ASPARTATE AMINO TRANSFERASE 30 U/L (17-59); BILIRUBIN,DIRECT 0.2 mg/dL (0.0-0.4); BILIRUBIN,TOTAL 0.3 mg/dL (0.2-1.3); BLOOD UREA NITROGEN 16 mg/dL (7-20); CARBON DIOXIDE 28 mmol/L (22-30); CHLORIDE 101 mmol/L (98-107); GLUCOSE 92 mg/dL (75-110); TOTAL PROTEIN 7.7 g/dL (6.3-8.2)
== END ==
LOC: OD 11:37
PROVIDERS: ATTEND Physician Assistant
DX: F31.9 Bipolar disorder, unspecified (principal); Z79.899 Other long term (current) drug therapy
CPT/HCPCS: 36415; 80053; 80156; 85025

== ENCOUNTER 2019-04-23 10:38 | Emergency (ER) | payer MEDICARE, MEDICAID ==
[2019-04-23 10:46] VITALS: BP 129/78
--- NOTE | 2019-04-23 10:46 | ER Document Report ---
HPI - HPI Patient complains to provider of: thumb pain Time Seen by Provider: 04/23/19 10:40 Onset: Other - unsure Quality of pain: Achy Context: 23-year-old male presents emergency department with complaints of left thumb pain. He is unsure what he did to make it hurt. Reports is been hurting for possibly last couple days. Patient is right-hand dominant. No obvious injury noted to the left thumb. No other complaints noted. Associated Symptoms: None Exacerbated by: Denies Relieved by: Denies Similar symptoms previously: No Recently seen / treated by doctor: No - REPRODUCTIVE Reproductive: DENIES: : Past Medical History - General Information source: Patient - Social History Smoking Status: Unknown if Ever Smoked Frequency of alcohol use: None Drug Abuse: None Family History: Reviewed & Not Pertinent - Past Medical History Cardiac Medical History: Reports: Hx Hypertension Neurological Medical History: Reports: Hx Seizures Renal/ Medical History: Denies: Hx Peritoneal Dialysis Psychiatric Medical History: Reports: Hx Attention Deficit Hyperactivity Disorder, Hx Bipolar Disorder Surgical Hx: Negative - Immunizations Immunizations up to date: Yes Hx Diphtheria, Pertussis, Tetanus Vaccination: Yes Vertical Provider Document - CONSTITUTIONAL Agree With Documented VS: Yes Exam Limitations: No Limitations General Appearance: WD/WN, No Apparent Distress - INFECTION CONTROL TRAVEL OUTSIDE OF THE [place] IN LAST 30 DAYS: No - HEENT HEENT: Atraumatic, Normocephalic - NECK Neck: Supple - RESPIRATORY Respiratory: No Respiratory Distress - MUSCULOSKELETAL/EXTREMETIES Musculoskeletal/Extremeties: MAEW, FROM, Non-Tender - Patient complains of entire left thumb hurting. No obvious deformity no swelling no erythema no warmth cap refill less than 3 seconds. Good radial pulse. Bilateral thumbs look the same. - NEURO Level of Consciousness: Awake, Alert, Appropriate Motor/Sensory: No Motor Deficit - DERM Integumentary: Warm, Dry Course - Re-evaluation Re-evalutation: 04/23/19 10:43 23-year-old male presents with complaint of left thumb hurts. Unsure of how long its been hurting. Denies injury denies knowing how he hurt it. X-ray ordered 04/23/19 11:27 Hand X-Ray 04/23/19 10:42 IMPRESSION: NEGATIVE STUDY OF THE LEFT HAND. NO RADIOGRAPHIC EVIDENCE OF ACUTE INJURY. - Diagnostic Test Radiology reviewed: Image reviewed, Reports reviewed Discharge - Discharge Clinical Impression: Pain of left thumb Condition: Stable Disposition: HOME, SELF-CARE Instructions: Use of Oiin-Rua-Duarz[facility] Ibuprofen ([facility]), Ice & Elevation ([facility]) Additional Instructions: *You have been evaluated for left thumb pain *Your x-ray was negative for an acute fracture *Rest/Ice/Elevate your thumb *Follow up with a primary care provider within 1 week for recheck and referral to orthopedics as indicated *Take ibuprofen as indicated for pain *Return to ED for worsening condition, changes, needs Referrals: MORGAN PHIPPS PA-C [Primary Care Provider] - Follow up in 1 week
--- NOTE | 2019-04-23 11:18 | RADIOLOGY REPORT (SQ) ---
EXAM DESCRIPTION: HAND LEFT 3 VIEWS COMPLETED DATE/TIME: 04/23/2019 11:01 am REASON FOR STUDY: thumb hand pain COMPARISON: None. EXAM PARAMETERS: NUMBER OF VIEWS: Three views. TECHNIQUE: AP, lateral and oblique radiographic images acquired of the left hand. LIMITATIONS: None. FINDINGS: MINERALIZATION: Normal. BONES: No acute fracture or dislocation. No worrisome bone lesions. JOINTS: No effusions. SOFT TISSUES: No soft tissue swelling. No foreign body. OTHER: No other significant finding. IMPRESSION: NEGATIVE STUDY OF THE LEFT HAND. NO RADIOGRAPHIC EVIDENCE OF ACUTE INJURY. TECHNICAL DOCUMENTATION: JOB ID: [id number] [employer]- All Rights Reserved Reading location - IP/workstation name: [facility]
== END 2019-04-23 11:41 | disposition home or self-care (01) ==
LOC: ER 10:38
DX: M79.645 Pain in left finger(s) (principal); I10 Essential (primary) hypertension
CPT/HCPCS: 99283

== ENCOUNTER 2019-04-27 13:33 | Emergency (ER) | payer MEDICARE, MEDICAID ==
[2019-04-27 14:27] LABS: ABSOLUTE BASOPHILS # (AUTO) 0.1 10^3/uL (0.0-0.2); ABSOLUTE EOSINOPHILS # (AUTO) 0.1 10^3/uL (0.0-0.6); ABSOLUTE LYMPHOCYTES (AUTO) 2.9 10^3/uL (0.5-4.7); ABSOLUTE NEUT (AUTO) 4.7 10^3/uL (1.7-8.2); BASOPHILS % (AUTO) 0.7 % (0-2); EOSINOPHILS % (AUTO) 0.9 % (0-6); HEMATOCRIT 39.8 % (37.9-51.0); HEMOGLOBIN 13.5 g/dL (13.5-17.0); LYMPHOCYTES % (AUTO) 32.9 % (13-45); MEAN CORPUSCULAR HEMOGLOBIN 32.2 pg (27.0-33.4); MEAN CORPUSCULAR VOLUME 95 fl (80-97); PLATELET COUNT 311 10^3/uL (150-450); RED CELL DISTRIBUTION WIDTH 14.4 % (11.5-14.0); SEGMENTED NEUTROPHILS % (AUTO) 54.5 % (42-78); TOTAL CELLS COUNTED % (AUTO) 100 %; WHITE BLOOD COUNT 8.7 10^3/uL (4.0-10.5)
[2019-04-27 14:33] LABS: APPEARANCE,URINE CLEAR; BILIRUBIN,URINE SMALL (NEGATIVE); COLOR,URINE YELLOW; GLUCOSE, URINE NEGATIVE (NEGATIVE); KETONES,URINE TRACE mg/dL (NEGATIVE); LEUKOCYTE ESTERASE,URINE NEGATIVE (NEGATIVE); NITRITE,URINE NEGATIVE (NEGATIVE); PROTEIN,URINE 30 mg/dL (NEGATIVE); URINE SPECIFIC GRAVITY 1.032
[2019-04-27 14:52] LABS: ALBUMIN 4.4 g/dL (3.5-5.0); ALKALINE PHOSPHATASE 118 U/L (38-126); ANION GAP 10 (5-19); ASPARTATE AMINO TRANSFERASE 37 U/L (17-59); BILIRUBIN,DIRECT 0.1 mg/dL (0.0-0.4); BILIRUBIN,TOTAL 0.4 mg/dL (0.2-1.3); BLOOD UREA NITROGEN 17 mg/dL (7-20); CALCIUM 9.4 mg/dL (8.4-10.2); CARBON DIOXIDE 26 mmol/L (22-30); CHLORIDE 106 mmol/L (98-107); GLUCOSE 93 mg/dL (75-110); TOTAL PROTEIN 7.5 g/dL (6.3-8.2)
[2019-04-27 14:53] VITALS: BP 132/49
[2019-04-27 14:53] LABS: ACETAMINOPHEN < 10 ug/mL (10-30); ALCOHOL < 10 mg/dL (NONE DETECTED); POTASSIUM 4.4 mmol/L (3.6-5.0); SALICYLATE < 1.0 mg/dL (2.0-20.0)
[2019-04-27 14:53] LABS: URINE AMPHETAMINES SCREEN NEGATIVE; URINE BARBITURATES SCREEN NEGATIVE; URINE BENZODIAZEPINES SCREEN NEGATIVE; URINE COCAINE SCREEN NEGATIVE; URINE MARIJUANA (THC) SCREEN NEGATIVE; URINE METHADONE SCREEN NEGATIVE; URINE PHENCYCLIDINE SCREEN NEGATIVE
--- NOTE | 2019-04-27 15:27 | ER Document Report ---
Entered by FLAKO BHATT SCRIBE 04/27/19 1355 Acting as scribe for:EMMIE MAGANA MD ED Psych Disorder / Suicide - General Chief Complaint: Psych Problem Stated Complaint: PSYCH/DANGEROUS TO OTHERS PER PAPERS Time Seen by Provider: 04/27/19 13:46 Primary Care Provider: MORGAN PHIPPS PA-C [NO LOCAL MD] - Follow up as needed Mode of Arrival: Ambulatory Information source: Patient Notes: 23-year-old male who presents to the emergency department today for complaints of bizarre behavior according to mom. Mom states patient has run away from home multiple times and is becoming somewhat aggressive with her. Patient also acts inappropriately in public. He presents on IVC paperwork which states he is shown "increased mood lability, increased aggression towards family in the home, increased impulsivity, and has been repeatedly eloping from the home. Patient is unable to contract for his safety or the safety of others and needs inpatient stabilization for safety". The patient's mother reports that he gets angry, has outbursts, got upset when she would not let him have her phone. 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 Mother reports that the 2 of them live with her mother at this time, but that the mother is supposed to close on a house tomorrow and they will have a more stable environment. TRAVEL OUTSIDE OF THE [place] IN LAST 30 DAYS: No - Related Data Allergies/Adverse Reactions: lorazepam [From Ativan] Allergy (Severe, Verified 09/30/18 13:48) risperidone [From Risperdal] Allergy (Verified 09/30/18 13:48) Past Medical History - General Information source: Patient - Social History Smoking Status: Never Smoker Cigarette use (# per day): No Frequency of alcohol use: None Drug Abuse: None Lives with: Family Family History: Reviewed & Not Pertinent - Past Medical History Cardiac Medical History: Reports: Hx Hypertension Neurological Medical History: Reports: Hx Seizures Psychiatric Medical History: Reports: Hx Attention Deficit Hyperactivity Disorder, Hx Bipolar Disorder - Immunizations Immunizations up to date: Yes Hx Diphtheria, Pertussis, Tetanus Vaccination: Yes Review of Systems - Review of Systems Constitutional: No symptoms reported EENT: No symptoms reported Cardiovascular: No symptoms reported Respiratory: No symptoms reported Gastrointestinal: No symptoms reported Genitourinary: No symptoms reported Male Genitourinary: No symptoms reported Musculoskeletal: No symptoms reported Skin: No symptoms reported Hematologic/Lymphatic: No symptoms reported Neurological/Psychological: See HPI -: Yes All other systems reviewed and negative Physical Exam - Vital signs Vitals: Temp Pulse Resp BP Pulse Ox 97.7 F 80 18 132/49 H 94 04/27/19 13:44 04/27/19 13:44 04/27/19 13:44 04/27/19 13:44 04/27/19 13:44 - Notes Notes: Physical Exam: General: Crying intermittently in mom's arms. Appears to be cognitively delayed. HEENT: Normocephalic. Atraumatic. PERRL. Extraocular movements intact. Oropharynx clear. Neck: Supple. Non-tender. Respiratory: No respiratory distress. Clear and equal breath sounds bilaterally. Cardiovascular: Regular rate and rhythm. Abdominal: Normal Inspection. Non-tender. No distension. Normal Bowel Sounds. Back: No gross abnormalities. Extremities: Moves all four extremities. Upper extremities: Normal inspection. Normal ROM. Lower extremities: Normal inspection. No edema. Normal ROM. Skin: Warm. Dry. Normal color. Course - Re-evaluation Re-evalutation: 04/27/19 16:00 Review of the IVC affidavit petition shows the reported behaviors do not meet t he criteria for involuntary commitment. This was discussed at length with the mother, and she understands. The IVC will be rescinded and the mother will take the patient home. She tells me she has tried [facility] in the past, they would not take him stating his IQ is below their cutoff of 70. - Vital Signs Vital signs: Temp Pulse Resp BP Pulse Ox 97.7 F 80 18 132/49 H 94 04/27/19 13:44 04/27/19 13:44 04/27/19 13:44 04/27/19 13:44 04/27/19 13:44 - Laboratory Result Diagrams: 04/27/19 14:12 04/27/19 14:12 Laboratory results interpreted by me: 04/27/19 04/27/19 04/27/19 13:53 14:12 14:12 RBC 4.20 L RDW 14.4 H Urine Protein 30 H Urine Ketones TRACE H Urine Bilirubin SMALL H Urine Urobilinogen 2.0 H Salicylates < 1.0 L Acetaminophen < 10 L Discharge - Discharge Clinical Impression: Behavioral problems Condition: Stable Disposition: HOME, SELF-CARE Additional Instructions: Follow-up with your mental health provider to discuss options other than in voluntary commitment to help manage behavioral problems. If involuntary commitment criteria can be established, then his provider can resubmit the IVC paperwork. Referrals: ERIC SWAIN MD [NO LOCAL MD] - Follow up as needed Scribe Attestation: 04/27/19 16:02 I personally performed the services described in the documentation, reviewed and edited the documentation which was dictated to the scribe in my presence, and it accurately records my words and actions. I personally performed the services described in the documentation, reviewed and edited the documentation which was dictated to the scribe in my presence, and it accurately records my words and actions.
--- NOTE | 2019-04-27 16:20 | PSYCHOLOGICAL NOTE ---
Psych Note - Psych Note Date seen by psych provider: 04/27/19 - Chart Review Time seen by psych provider: 15:30 Psych Note: Review of the initial IVC paperwork that accompanied the patient to the ED via the [facility] [employer], demonstrated vague information regarding need for IVC. For example, narrative by Dr. Pat Newman stated "patient demonstrates an increase in aggression towards his mother and an increase in impulsivity." It is reported he leaves the home without permission (the patient is 23 y[address] Newman goes on to suggest the patient is a danger to himself and others and requires inpatient psychiatric hospitalization. Though there is indication in the paperwork the patient is reported to be "aggressive" and "impulsive", [place] 122c requires the commitment examiner to detail the behaviors and situations leading to the IVC, as outlined in the definitions of [place] 122c. If this does not not occur, the minimal threshold criteria of involuntary commitment is not met and the paperwork cannot /should not be signed, or the IVC petition or first exam and proceedings must be terminated and the patient released. The IVC paperwork presented upon arrival with the patient via [facility] [employer] does not meet the criteria outlined under [place] 122c. I spoke with the provider regarding the statuatory definitions and criteria and advised him of the potential ramifications of going forward with an inappropriate IVC. Both the provider and I agreed upon consultation that rescinding of the IVC and providing options to the patient to stay voluntarily and to contact the commitment examiner and advise they could redo the IVC with more information and per statute, was the be st forward path. I contacted Dr. Newman's office but have yet to have receive a return call. Given such, rescind of IVC is recommended.
--- NOTE | 2019-04-27 18:05 | EKG REPORT ---
SEVERITY:- NORMAL ECG - SINUS RHYTHM : Confirmed by: Oleg Jackson MD 27-Apr-2019 18:04:38
== END 2019-04-27 16:23 | disposition home or self-care (01) ==
LOC: ER 13:33
DX: R46.89 Other symptoms and signs involving appearance and behavior (principal); I10 Essential (primary) hypertension; Z88.8 Allergy status to other drugs, medicaments and biological substances
CPT/HCPCS: 36415; 80053; 80307; 81001; 85025; 93005; 93010; 99285

== ENCOUNTER 2019-08-05 02:20 | Emergency (ER) | payer MEDICARE, MEDICAID ==
[2019-08-05] MEDS ORDERED: NORMAL SALINE 1000 ML 1,000 ML IV ONE (03:16)
[2019-08-05] MEDS ORDERED: ONDANSETRON HCL INJ/PF 4 MG/2 ML SDV IV ONE (03:16)
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
[2019-08-05 05:49] LABS: ABSOLUTE EOSINOPHILS # (AUTO) 0.1 10^3/uL (0.0-0.6); ABSOLUTE LYMPHOCYTES (AUTO) 2.3 10^3/uL (0.5-4.7); ABSOLUTE MONOCYTES (AUTO) 0.7 10^3/uL (0.1-1.4); ABSOLUTE NEUT (AUTO) 5.1 10^3/uL (1.7-8.2); BASOPHILS % (AUTO) 0.4 % (0-2); EOSINOPHILS % (AUTO) 0.9 % (0-6); HEMATOCRIT 32.9 % (37.9-51.0); HEMOGLOBIN 11.1 g/dL (13.5-17.0); LYMPHOCYTES % (AUTO) 28.4 % (13-45); MEAN CORPUSCULAR HEMOGLOBIN 32.7 pg (27.0-33.4); MEAN CORPUSCULAR HGB CONC 33.6 g/dL (32.0-36.0); MEAN CORPUSCULAR VOLUME 98 fl (80-97); MONOCYTES % (AUTO) 8.1 % (3-13); PLATELET COUNT 204 10^3/uL (150-450); RED BLOOD COUNT 3.38 10^6/uL (4.35-5.55); RED CELL DISTRIBUTION WIDTH 12.5 % (11.5-14.0); SEGMENTED NEUTROPHILS % (AUTO) 62.2 % (42-78); TOTAL CELLS COUNTED % (AUTO) 100 %; WHITE BLOOD COUNT 8.2 10^3/uL (4.0-10.5)
[2019-08-05 06:54] LABS: ALBUMIN 3.9 g/dL (3.5-5.0); ALCOHOL 95 mg/dL (NONE DETECTED); ALKALINE PHOSPHATASE 137 U/L (38-126); ANION GAP 10 (5-19); ASPARTATE AMINO TRANSFERASE 33 U/L (17-59); BILIRUBIN,TOTAL 0.2 mg/dL (0.2-1.3); BLOOD UREA NITROGEN 13 mg/dL (7-20); CALCIUM 8.5 mg/dL (8.4-10.2); CARBON DIOXIDE 25 mmol/L (22-30); CHLORIDE 107 mmol/L (98-107); GLUCOSE 82 mg/dL (75-110); POTASSIUM 4.2 mmol/L (3.6-5.0); TOTAL PROTEIN 6.6 g/dL (6.3-8.2)
[2019-08-05 07:37] VITALS: BP 111/59
== END 2019-08-05 07:37 | disposition home or self-care (01) ==
LOC: ER 02:20
DX: S06.9X9A Unspecified intracranial injury with loss of consciousness of unspecified duration, initial encounter (principal); S29.9XXA Unspecified injury of thorax, initial encounter; S40.812A Abrasion of left upper arm, initial encounter; S40.811A Abrasion of right upper arm, initial encounter; R07.81 Pleurodynia; R07.1 Chest pain on breathing; Y04.2XXA Assault by strike against or bumped into by another person, initial encounter; F10.120 Alcohol abuse with intoxication, uncomplicated; K11.5 Sialolithiasis; F84.0 Autistic disorder; I10 Essential (primary) hypertension; F31.9 Bipolar disorder, unspecified; R56.9 Unspecified convulsions; Z79.899 Other long term (current) drug therapy; Z88.8 Allergy status to other drugs, medicaments and biological substances
CPT/HCPCS: 99284; 96360; 36415; 80307; 85025; 80053; 71101; 70450; 70486; 72125; J7030